=== PATIENT | female | born 2000 | race Caucasian/White ===

== ENCOUNTER 2022-08-03 17:23 | Emergency (ER) | payer OTHER ==
[~2022-08-03] VITALS: Ht 167.6 cm; Wt 71.1 kg
[2022-08-03] MEDS ORDERED: OMEPRAZOLE20 MG PO (18:25)
[2022-08-03] MEDS ORDERED: LITHIUM CARBON600 MG PO (18:25)
[2022-08-03] MEDS ORDERED: ONDANSETRON HCL4 MG PO (22:08)
== END 2022-08-03 22:15 | disposition home or self-care (01) ==
LOC: ED 17:23
DX: B34.9 Viral infection, unspecified (principal); Z20.822 Contact with and (suspected) exposure to COVID-19; Z79.899 Other long term (current) drug therapy
CPT/HCPCS: 36415; 71045; 80053; 81003; 83690; 83735; 84703; 85025; 87502; 96361; 96374; 96375; 99284-25; A9270; J2405; J7121; U0003

== ENCOUNTER → 2023-09-18 | Emergency (ER) | payer OTHER ==
[~2023-09-18] VITALS: Ht 160 cm; Wt 54.6 kg
[~2023-09-18] MED LIST: ALLERGY RELIEF10 MG PO; ATIVAN1 MG PO; BENZTROPINE ME0.5 MG PO; BENZTROPINE MESYLATE 1 MG TAB PO PRN; HYDROXYZINE HCL10 MG PO; L-THEANINE100 MG PO; LITHIUM CARBON600 MG PO; LORazepam 1 MG TAB PO PRN; OMEPRAZOLE20 MG PO; ONDANSETRON HCL4 MG PO; QUETIAPINE FUM100 MG PO; QUETIAPINE FUMARATE 100 MG TAB PO SCH; hydrOXYzine pamoate 25 MG CAP PO PRN
[2023-09-18 14:29] LABS: BILIRUBIN, URINE NEGATIVE (negative); BLOOD/HGB, URINE NEGATIVE (Negative); KETONE, URINE NEGATIVE (Negative); LEUK ESTERASE, URINE NEGATIVE (negative); NITRITE, URINE NEGATIVE (negative)
[2023-09-18 14:31] LABS: BASOPHILS 0.7 % (0-2); EOSINOPHILS 0.4 % (0-6); HEMATOCRIT 39.3 % (35.0-50.0); LYMPHOCYTES 32.7 % (24-44); MCH 30.5 (27-36); MCHC 33.1 g/dl (30-36); MCV 92.3 fl (81-99); MONOCYTES 6.3 % (0-12); NEUTROPHILS 59.9 % (39-80); PLATELET COUNT 283 K/uL (140-440); RBC 4.26 M/ul (4.3-5.7); RDW 13.2 (10.5-15.0)
[2023-09-18 14:45] LABS: AMPHETAMINES, URINE NEGATIVE (NEGATIVE); BARBITURATES, URINE NEGATIVE (NEGATIVE); BENZODIAZEPINE, URINE NEGATIVE (NEGATIVE); BUPRENORPHINE, URINE NEGATIVE (NEGATIVE); CANNABINOID, URINE NEGATIVE (NEGATIVE); COCAINE, URINE NEGATIVE (NEGATIVE); ECSTASY, URINE NEGATIVE (NEGATIVE); FENTANYL, URINE NEGATIVE (NEGATIVE); METHADONE, URINE NEGATIVE (NEGATIVE); OPIATES, URINE NEGATIVE (NEGATIVE); OXYCODONE, URINE NEGATIVE (NEGATIVE); PHENCYCLIDINE, URINE NEGATIVE (NEGATIVE)
[2023-09-18 14:47] LABS: ACETAMINOPHEN 0 ug/mL (10-30); ALBUMIN 3.7 g/dL (3.4-5.0); ALBUMIN/GLOBULIN RATIO 0.95 (1.1-2.4); ALCOHOL, MEDICAL <3 ng/dL (<3); ALKALINE PHOSPHATASE 50 U/L (46-116); ALT (SGPT) 39 U/L (14-59); ANION GAP 15.6 (7-21); AST (SGOT) 29 U/L (15-37); BILIRUBIN, TOTAL 0.4 ng/dL (0.2-1.0); CALCIUM 9.5 mg/dL (8.5-10.1); CARBON DIOXIDE 23 mmol/L (21-32); CHLORIDE 105 mmol/L (98-107); GLOMERULAR FILTRATION RATE,EST 107 mL/min (>60); POTASSIUM 3.6 mmol/L (3.5-5.1); PROTEIN, TOTAL 7.6 g/dL (6.4-8.2); SALICYLATE 0.9 mg/dL (2.8-20.0); TSH, 3RD GENERATION 0.469 uIU/mL (0.358-3.740); UREA NITROGEN 16 mg/dL (7-18)
[2023-09-18 17:25] LABS: INFLUENZA B NAA NEGATIVE (NEGATIVE); RESPIRATORY SYNCYTIAL VIR NAA NEGATIVE (NEGATIVE)
[2023-09-19 19:35] VITALS: BP 140/83
== END ==
LOC: ED 13:51
PROVIDERS: Emergency Medicine
DX: F25.9 Schizoaffective disorder, unspecified (principal); Z79.899 Other long term (current) drug therapy; Z88.8 Allergy status to other drugs, medicaments and biological substances
CPT/HCPCS: 36415; 80053; 80307; 81003; 84443; 84703; 85025; 87502; G0480; U0002

== ENCOUNTER 2024-01-14 14:42 | Emergency (ER) | payer OTHER ==
[~2024-01-14] VITALS: Ht 160 cm; Wt 55.4 kg
[~2024-01-14 14:42] MED LIST changes: -BENZTROPINE MESYLATE 1 MG TAB PO PRN; -LORazepam 1 MG TAB PO PRN; -QUETIAPINE FUMARATE 100 MG TAB PO SCH; -hydrOXYzine pamoate 25 MG CAP PO PRN
--- OUTSIDE RECORDS SUMMARY | 2024-01-14 14:49 | XMS ---
PreManage Notification: STELLA HOYT Security Data Officer Events No recent Security Events currently on file CRITERIA MET - [facility] - Has Care Guidelines CARE PROVIDERS -, [facility] Dentist: Refrigeration Engineer [facility] PHONE: [phone] -Sanna- Dentist: Refrigeration Engineer [facility] PHONE: [phone] Shannon has no Care Guidelines for this patient. Paulino VISIT COUNT (12 MO.) [address] [place] [address] TOTAL 3 NOTE: Visits indicate total known visits. ED/UCC VISIT TRACKING (12 MO.) 01/14/2024 14:43 [facility] [place] TYPE: Emergency COMPLAINT: - POSSIBLE MENTAL HEALTH 09/18/2023 13:52 [facility] [place] TYPE: Emergency COMPLAINT: - MEDICAL CLEARANCE DIAGNOSES: - Allergy status to other drugs, medicaments and biological substances - Delusional disorders - Other superintendent marine oil terminal (current) drug therapy - Schizoaffective disorder, unspecified 08/08/2023 17:13 [facility] [place] TYPE: Emergency COMPLAINT: - MEDICAL CLEARANCE DIAGNOSES: - Allergy status to other drugs, medicaments and biological substances - Encounter for screening for COVID-19 - Major depressive disorder, single episode, unspecified - Other superintendent marine oil terminal (current) drug therapy - Other symptoms and signs involving appearance and behavior - Suicidal ideations - Unspecified psychosis not due to a substance or known physiological condition INPATIENT VISIT TRACKING (12 MO.) 09/26/2023 11:52 [facility] CHENTE Cruz TYPE: Behavioral Health DIAGNOSES: - Schizoaffective disorder, bipolar type - Schizoaffective disorder, unspecified - Unspecified psychosis not due to a substance or known physiological condition 08/13/2023 10:04 [facility] [place] TYPE: Psychiatric Services DIAGNOSES: 0. Major depressive disorder, recurrent severe without psychotic features 0. Schizoaffective disorder, bipolar type 1. Schizoaffective disorder, bipolar type 2. Hypokalemia 2. Nonsuicidal self-harm 2. Patient's intentional underdosing of medication regimen for other reason 2. Personal history of suicidal behavior 2. Scoliosis, unspecified 2. Suicidal ideations [email or web address]
[2024-01-14 16:50] LABS: BASOPHILS 0.9 % (0-2); EOSINOPHILS 0.8 % (0-6); HEMATOCRIT 38.7 % (35.0-50.0); HEMOGLOBIN 13.1 g/dL (12.0-18.0); LYMPHOCYTES 37.9 % (24-44); MCH 30.7 (27-36); MCHC 33.8 g/dl (30-36); MCV 90.7 fl (81-99); MONOCYTES 5.4 % (0-12); PLATELET COUNT 242 K/uL (140-440); RBC 4.27 M/ul (4.3-5.7)
[2024-01-14 17:18] LABS: ACETAMINOPHEN 0 ug/mL (10-30); ALBUMIN 3.8 g/dL (3.4-5.0); ALBUMIN/GLOBULIN RATIO 1.09 (1.1-2.4); ALCOHOL, MEDICAL <3 ng/dL (<3); ALKALINE PHOSPHATASE 45 U/L (46-116); ALT (SGPT) 26 U/L (14-59); ANION GAP 14.7 (7-21); AST (SGOT) 6 U/L (15-37); BILIRUBIN, TOTAL 0.4 ng/dL (0.2-1.0); BUN/CREATININE RATIO 18.51 (6.0-28.6); CALCIUM 8.5 mg/dL (8.5-10.1); CARBON DIOXIDE 25 mmol/L (21-32); CHLORIDE 102 mmol/L (98-107); CREATININE, SERUM 0.81 mg/dL (0.55-1.02); GLOMERULAR FILTRATION RATE,EST 105 mL/min (>60); POTASSIUM 3.7 mmol/L (3.5-5.1); PROTEIN, TOTAL 7.3 g/dL (6.4-8.2); SALICYLATE 0.7 mg/dL (2.8-20.0); TSH, 3RD GENERATION 0.192 uIU/mL (0.358-3.740); UREA NITROGEN 15 mg/dL (7-18)
[2024-01-14 17:30] LABS: BILIRUBIN, URINE NEGATIVE (negative); BLOOD/HGB, URINE TRACE-I (Negative); KETONE, URINE NEGATIVE (Negative); LEUK ESTERASE, URINE NEGATIVE (negative); NITRITE, URINE NEGATIVE (negative)
[2024-01-14 17:41] LABS: BACTERIA, URINE 1+ /hpf (negative); CASTS, URINE NONE SEEN \\lpf; CRYSTALS, URINE NONE SEEN (0-1+); EPITHELIAL CELLS, URINE SQUAMOUS 3+ /lpf (0-1+); RED BLOOD CELLS, URINE 0-1 /hpf (0-5)
[2024-01-14 17:42] LABS: COLLECTION TYPE, URINE CLEAN CATCH; REFLEX CULTURE, URINE No (No)
[2024-01-14 17:44] LABS: AMPHETAMINES, URINE NEGATIVE (NEGATIVE); BARBITURATES, URINE NEGATIVE (NEGATIVE); BENZODIAZEPINE, URINE NEGATIVE (NEGATIVE); BUPRENORPHINE, URINE NEGATIVE (NEGATIVE); CANNABINOID, URINE NEGATIVE (NEGATIVE); COCAINE, URINE NEGATIVE (NEGATIVE); ECSTASY, URINE NEGATIVE (NEGATIVE); FENTANYL, URINE NEGATIVE (NEGATIVE); METHADONE, URINE NEGATIVE (NEGATIVE); OPIATES, URINE NEGATIVE (NEGATIVE); OXYCODONE, URINE NEGATIVE (NEGATIVE); PHENCYCLIDINE, URINE NEGATIVE (NEGATIVE)
[2024-01-14] MEDS ORDERED: QUETIAPINE FUMARATE 25 MG TAB PO ONE (22:30)
[2024-01-15 12:27] VITALS: BP 116/65
--- NOTE | 2024-01-16 22:33 | EKG ---
[facility] [address] [facility] [address] [place] [address] Signed Sinus bradycardia Early repolarization Otherwise normal ECG No previous ECGs available Confirmed by Trisha Scaheffer MD () on 01/16/2024 10:33:05 PM Electronically Signed By: TRISHA SCHAEFFER MD 01/16/242232 PATIENT NAME: STELLA HOYT Electrocardiogram DATE OF : [birth year] PHYSICIAN: TRISHA SCHAEFFER MD REPORT #: [id number] REPORT IS CONFIDENTIAL AND NOT TO BE RELEASED WITHOUT AUTHORIZATION
== END 2024-01-15 12:29 | disposition short-term general hospital (02) ==
LOC: ED 14:42
PROVIDERS: Emergency Medicine
DX: F32.A Depression, unspecified (principal); Z88.8 Allergy status to other drugs, medicaments and biological substances; Z79.899 Other long term (current) drug therapy
CPT/HCPCS: 36415; 80053; 80307; 81001; 84443; 84703; 85025; 93005; 93010; 99285; G0480; U0002

== ENCOUNTER 2024-05-08 18:48 | Emergency (ER) | payer OTHER ==
[~2024-05-08] VITALS: Ht 160 cm; Wt 65.0 kg
--- OUTSIDE RECORDS SUMMARY | 2024-05-08 19:26 | XMS ---
PreManage Notification: STELLA HOYT Security Ore Mixer Events No recent Security Events currently on file CRITERIA MET - [facility] - Has Care Guidelines CARE PROVIDERS -, [facility] Dentist: Mill Controller [facility] PHONE: [phone] -Sanna- Dentist: Mill Controller [facility] PHONE: [phone] Shannon has no Care Guidelines for this patient. Paulino VISIT COUNT (12 MO.) [address] [place] [address] TOTAL 4 NOTE: Visits indicate total known visits. ED/UCC VISIT TRACKING (12 MO.) 05/08/2024 18:[address] [facility] [address] [facility] [place] TYPE: Emergency COMPLAINT: - INSOMNIA 01/14/2024 14:[address] [facility] [address] [facility] [place] TYPE: Emergency COMPLAINT: - POSSIBLE MENTAL HEALTH DIAGNOSES: - Allergy status to other drugs, medicaments and biological substances - Depression, unspecified - Other terminal operator (current) drug therapy - Suicidal ideations 09/18/2023 13:52 [facility] [place] TYPE: Emergency COMPLAINT: - MEDICAL CLEARANCE DIAGNOSES: - Allergy status to other drugs, medicaments and biological substances - Delusional disorders - Other care home (current) drug therapy - Schizoaffective disorder, unspecified 08/08/2023 17:13 [facility] Bruni [facility] [place] TYPE: Emergency COMPLAINT: - MEDICAL CLEARANCE DIAGNOSES: - Allergy status to other drugs, medicaments and biological substances - Encounter for screening for COVID-19 - Major depressive disorder, single episode, unspecified - Other care home (current) drug therapy - Other symptoms and signs involving appearance and behavior - Suicidal ideations - Unspecified psychosis not due to a substance or known physiological condition INPATIENT VISIT TRACKING (12 MO.) 01/15/2024 16:[address] [facility] TYPE: Behavioral Health DIAGNOSES: - Depression, unspecified 09/26/2023 11:52 [facility] TYPE: Behavioral Health DIAGNOSES: - Schizoaffective disorder, bipolar type - Schizoaffective disorder, unspecified - Unspecified psychosis not due to a substance or known physiological condition 08/13/2023 10:04 [facility] [place] TYPE: Psychiatric Services DIAGNOSES: 0. Major depressive disorder, recurrent severe without psychotic features 0. Schizoaffective disorder, bipolar type 1. Schizoaffective disorder, bipolar type 2. Hypokalemia 2. Nonsuicidal self-harm 2. Patient's intentional underdosing of medication regimen for other reason 2. Personal history of suicidal behavior 2. Scoliosis, unspecified 2. Suicidal ideations [email or web address]
[2024-05-08] MEDS ORDERED: AMBIEN5 MG PO (20:06)
[2024-05-08 20:20] VITALS: BP 122/69
== END 2024-05-08 20:21 | disposition home or self-care (01) ==
LOC: ED 18:48
DX: G47.00 Insomnia, unspecified (principal); M41.9 Scoliosis, unspecified; Z88.8 Allergy status to other drugs, medicaments and biological substances
CPT/HCPCS: 99283

== ENCOUNTER 2024-05-10 10:49 | Emergency (ER) | payer OTHER ==
[~2024-05-10] VITALS: Ht 160 cm; Wt 60.8 kg
[~2024-05-10 10:49] MED LIST changes: +AMBIEN5 MG PO
--- OUTSIDE RECORDS SUMMARY | 2024-05-10 10:51 | XMS ---
PreManage Notification: STELLA HOYT Security Pigs Feet Finisher Events No recent Security Events currently on file CRITERIA MET - [facility] - 2 Visits in 30 Days - [facility] - Has Care Guidelines CARE PROVIDERS -, [facility] Dentist: Middle School Tutor [facility] PHONE: [phone] -[place]anna- Dentist: Middle School Tutor [facility] PHONE: [phone] Shannon has no Care Guidelines for this patient. EPb. VISIT COUNT (12 MO.) 5 [facility] TOTAL 5 NOTE: Visits indicate total known visits. ED/UCC VISIT TRACKING (12 MO.) 05/10/2024 10:[address] [facility] [address] [facility] [place] TYPE: Emergency COMPLAINT: - MEDICAL CLEARANCE 05/08/2024 18:[address] [facility] [address] [facility] [place] TYPE: Emergency COMPLAINT: - INSOMNIA 01/14/2024 14:43 [facility] Tate [place] TYPE: Emergency COMPLAINT: - POSSIBLE MENTAL HEALTH DIAGNOSES: - Allergy status to other drugs, medicaments and biological substances - Depression, unspecified - Other shelter (current) drug therapy - Suicidal ideations 09/18/2023 13:52 [facility] [place] TYPE: Emergency COMPLAINT: - MEDICAL CLEARANCE DIAGNOSES: - Allergy status to other drugs, medicaments and biological substances - Delusional disorders - Other shelter (current) drug therapy - Schizoaffective disorder, unspecified 08/08/2023 17:13 [facility] [place] TYPE: Emergency COMPLAINT: - MEDICAL CLEARANCE DIAGNOSES: - Allergy status to other drugs, medicaments and biological substances - Encounter for screening for COVID-19 - Major depressive disorder, single episode, unspecified - Other shelter (current) drug therapy - Other symptoms and signs involving appearance and behavior - Suicidal ideations - Unspecified psychosis not due to a substance or known physiological condition INPATIENT VISIT TRACKING (12 MO.) 01/15/2024 16:03 [facility]ENTE Cruz TYPE: Behavioral Health DIAGNOSES: - Depression, unspecified 09/26/2023 11:52 [facility] [place] TYPE: Behavioral Health DIAGNOSES: - Schizoaffective disorder, bipolar type - Schizoaffective disorder, unspecified - Unspecified psychosis not due to a substance or known physiological condition 08/13/2023 10:04 [facility] TYPE: Psychiatric Services DIAGNOSES: 0. Major depressive disorder, recurrent severe without psychotic features 0. Schizoaffective disorder, bipolar type 1. Schizoaffective disorder, bipolar type 2. Hypokalemia 2. Nonsuicidal self-harm 2. Patient's intentional underdosing of medication regimen for other reason 2. Personal history of suicidal behavior 2. Scoliosis, unspecified 2. Suicidal ideations [email or web address]
[2024-05-10 15:05] VITALS: BP 128/78
== END 2024-05-10 15:08 | disposition home or self-care (01) ==
LOC: ED 10:49
DX: G47.8 Other sleep disorders (principal); F43.10 Post-traumatic stress disorder, unspecified; M41.9 Scoliosis, unspecified; Z88.8 Allergy status to other drugs, medicaments and biological substances
CPT/HCPCS: 99283

== ENCOUNTER 2024-06-14 16:27 | Emergency (ER) | payer OTHER ==
[~2024-06-14] VITALS: Ht 160 cm; Wt 59.7 kg
--- OUTSIDE RECORDS SUMMARY | 2024-06-14 16:33 | XMS ---
PreManage Notification: STELLA HOYT Security Digital Media Strategist Events No recent Security Events currently on file CRITERIA MET - [facility] - Has Care Guidelines CARE PROVIDERS -, [facility] Dentist: Security Systems Manager [facility] PHONE: [phone] -Sanna- Dentist: Security Systems Manager On License Of [facility] PHONE: [phone] Shannon has no Care Guidelines for this patient. Paulino VISIT COUNT (12 MO.) [address] [place] [address] TOTAL 6 NOTE: Visits indicate total known visits. ED/UCC VISIT TRACKING (12 MO.) 06/14/2024 16:[address] [facility] [address] [facility] [place] TYPE: Emergency COMPLAINT: - SLEEP PROBLEM 05/10/2024 10:[address] [facility] [address] [facility] [place] TYPE: Emergency COMPLAINT: - MEDICAL CLEARANCE DIAGNOSES: - Allergy status to other drugs, medicaments and biological substances - Insomnia, unspecified - Other sleep disorders - Post-traumatic stress disorder, unspecified - Scoliosis, unspecified 05/08/2024 18:[address] [facility] [address] [facility] [place] TYPE: Emergency COMPLAINT: - INSOMNIA DIAGNOSES: - Allergy status to other drugs, medicaments and biological substances - Insomnia, unspecified - Scoliosis, unspecified 01/14/2024 14:43 [facility] [place] TYPE: Emergency COMPLAINT: - POSSIBLE MENTAL HEALTH DIAGNOSES: - Allergy status to other drugs, medicaments and biological substances - Depression, unspecified - Other skilled nursing (current) drug therapy - Suicidal ideations 09/18/2023 13:52 [facility] [place] [facility]: [facility] COMPLAINT: - MEDICAL CLEARANCE DIAGNOSES: - Allergy status to other drugs, medicaments and biological substances - Delusional disorders - Other termite control servicer (current) drug therapy - Schizoaffective disorder, unspecified 08/08/2023 17:[address] [facility] [address] [facility] [place] TYPE: Emergency COMPLAINT: - MEDICAL CLEARANCE DIAGNOSES: - Allergy status to other drugs, medicaments and biological substances - Encounter for screening for COVID-19 - Major depressive disorder, single episode, unspecified - Other termite control servicer (current) drug therapy - Other symptoms and signs involving appearance and behavior - Suicidal ideations - Unspecified psychosis not due to a substance or known physiological condition INPATIENT VISIT TRACKING (12 MO.) 01/15/2024 16:03 [facility] [place] TYPE: Behavioral Health DIAGNOSES: - Depression, unspecified 09/26/2023 11:52 [facility] [place] TYPE: Behavioral Health DIAGNOSES: - Schizoaffective disorder, bipolar type - Schizoaffective disorder, unspecified - Unspecified psychosis not due to a substance or known physiological condition 08/13/2023 10:04 [facility] [place] TYPE: Psychiatric Services DIAGNOSES: 0. Major depressive disorder, recurrent severe without psychotic features 0. Schizoaffective disorder, bipolar type 1. Schizoaffective disorder, bipolar type 2. Hypokalemia 2. Nonsuicidal self-harm 2. Patient's intentional underdosing of medication regimen for other reason 2. Personal history of suicidal behavior 2. Scoliosis, unspecified 2. Suicidal ideations [email or web address]
[2024-06-14 18:21] LABS: BILIRUBIN, URINE NEGATIVE (negative); BLOOD/HGB, URINE NEGATIVE (Negative); KETONE, URINE TRACE (Negative); LEUK ESTERASE, URINE NEGATIVE (negative); NITRITE, URINE NEGATIVE (negative)
[2024-06-14 18:31] LABS: AMPHETAMINES, URINE NEGATIVE (NEGATIVE); BARBITURATES, URINE NEGATIVE (NEGATIVE); BENZODIAZEPINE, URINE NEGATIVE (NEGATIVE); BUPRENORPHINE, URINE NEGATIVE (NEGATIVE); CANNABINOID, URINE NEGATIVE (NEGATIVE); COCAINE, URINE NEGATIVE (NEGATIVE); ECSTASY, URINE NEGATIVE (NEGATIVE); FENTANYL, URINE NEGATIVE (NEGATIVE); METHADONE, URINE NEGATIVE (NEGATIVE); OPIATES, URINE NEGATIVE (NEGATIVE); OXYCODONE, URINE NEGATIVE (NEGATIVE); PHENCYCLIDINE, URINE NEGATIVE (NEGATIVE)
[2024-06-14 18:56] LABS: BASOPHILS 0.7 % (0-2); EOSINOPHILS 0.4 % (0-6); HEMATOCRIT 44.3 % (35.0-50.0); HEMOGLOBIN 14.8 g/dL (12.0-18.0); LYMPHOCYTES 40.7 % (24-44); MCH 30.9 (27-36); MCHC 33.3 g/dl (30-36); MCV 92.7 fl (81-99); NEUTROPHILS 54.2 % (39-80); RBC 4.78 M/ul (4.3-5.7); RDW 13.2 (10.5-15.0)
[2024-06-14 18:57] LABS: ACETAMINOPHEN 0 ug/mL (10-30); ALBUMIN 4.1 g/dL (3.4-5.0); ALBUMIN/GLOBULIN RATIO 1.08 (1.1-2.4); ALCOHOL, MEDICAL <3 ng/dL (<3); ALKALINE PHOSPHATASE 47 U/L (46-116); ALT (SGPT) 17 U/L (14-59); ANION GAP 16.9 (7-21); AST (SGOT) 17 U/L (15-37); BILIRUBIN, TOTAL 0.6 ng/dL (0.2-1.0); BUN/CREATININE RATIO 19.04 (6.0-28.6); CALCIUM 9.4 mg/dL (8.5-10.1); CARBON DIOXIDE 23 mmol/L (21-32); CHLORIDE 102 mmol/L (98-107); CREATININE, SERUM 0.84 mg/dL (0.55-1.02); GLOMERULAR FILTRATION RATE,EST 101 mL/min (>60); POTASSIUM 3.9 mmol/L (3.5-5.1); PROTEIN, TOTAL 7.9 g/dL (6.4-8.2); SALICYLATE 0.8 mg/dL (2.8-20.0); TSH, 3RD GENERATION 0.487 uIU/mL (0.358-3.740); UREA NITROGEN 16 mg/dL (7-18)
[2024-06-14] MEDS ORDERED: SEROQUEL50 MG PO (20:54)
[2024-06-14] MEDS ORDERED: QUETIAPINE FUMARATE 25 MG TAB PO ONE (21:00)
[2024-06-14 21:06] VITALS: BP 108/67
== END 2024-06-14 21:08 | disposition home or self-care (01) ==
LOC: ED 16:27
PROVIDERS: Emergency Medicine
DX: G47.00 Insomnia, unspecified (principal); R45.851 Suicidal ideations; M41.9 Scoliosis, unspecified; Z88.8 Allergy status to other drugs, medicaments and biological substances; Z79.899 Other long term (current) drug therapy
CPT/HCPCS: 36415; 80053; 80307; 81003; 84443; 84703; 85025; 85060; 99284; A9270; G0480

== ENCOUNTER 2024-07-04 00:53 | Emergency (ER) | payer OTHER ==
[~2024-07-04] VITALS: Ht 160 cm; Wt 70.0 kg
[~2024-07-04 00:53] MED LIST changes: +SEROQUEL50 MG PO
--- OUTSIDE RECORDS SUMMARY | 2024-07-04 00:55 | XMS ---
PreManage Notification: STELLA HOYT Security Fire Lookout Events No recent Security Events currently on file CRITERIA MET - [facility] - 2 Visits in 30 Days - [facility] - Has Care Guidelines CARE PROVIDERS [facility] Current PHONE: Unknown Shannon has no Care Guidelines for this patient. ELars VISIT COUNT (12 MO.) 7 [facility] TOTAL 7 NOTE: Visits indicate total known visits. ED/UCC VISIT TRACKING (12 MO.) 07/04/2024 00:53 [facility] [place] TYPE: Emergency COMPLAINT: - SUICIDAL/DEPRESSION 06/14/2024 16:27 [facility] [place] TYPE: Emergency COMPLAINT: - SLEEP PROBLEM DIAGNOSES: - Allergy status to other drugs, medicaments and biological substances - Insomnia, unspecified - Other bed bug exterminator (current) drug therapy - Scoliosis, unspecified - Suicidal ideations 05/10/2024 10:50 [facility] [place] TYPE: Emergency COMPLAINT: - MEDICAL CLEARANCE DIAGNOSES: - Allergy status to other drugs, medicaments and biological substances - Insomnia, unspecified - Other sleep disorders - Post-traumatic stress disorder, unspecified - Scoliosis, unspecified 05/08/2024 18:[address] [facility] [place] TYPE: Emergency COMPLAINT: - INSOMNIA DIAGNOSES: - Allergy status to other drugs, medicaments and biological substances - Insomnia, unspecified - Scoliosis, unspecified 01/14/2024 14:[address] [facility] [place] TYPE: Emergency COMPLAINT: - POSSIBLE MENTAL HEALTH DIAGNOSES: - Allergy status to other drugs, medicaments and biological substances - Depression, unspecified - Other fci (current) drug therapy - Suicidal ideations 09/18/2023 13:52 [facility] [place] [facility] [place] TYPE: Emergency COMPLAINT: - MEDICAL CLEARANCE DIAGNOSES: - Allergy status to other drugs, medicaments and biological substances - Delusional disorders - Other bed bug exterminator (current) drug therapy - Schizoaffective disorder, unspecified 08/08/2023 17:[address] [facility] [place] [place] TYPE: Emergency COMPLAINT: - MEDICAL CLEARANCE DIAGNOSES: - Allergy status to other drugs, medicaments and biological substances - Encounter for screening for COVID-19 - Major depressive disorder, single episode, unspecified - Other fci (current) drug therapy - Other symptoms and signs involving appearance and behavior - Suicidal ideations - Unspecified psychosis not due to a substance or known physiological condition INPATIENT VISIT TRACKING (12 MO.) 01/15/2024 16:03 [facility] [place] M.C[facility] TYPE: Behavioral Health DIAGNOSES: - Depression, unspecified 09/26/2023 11:52 [facility] [place] M.C[facility]ne TYPE: Behavioral Health DIAGNOSES: - Schizoaffective disorder, bipolar type - Schizoaffective disorder, unspecified - Unspecified psychosis not due to a substance or known physiological condition 08/13/2023 10:04 [facility] [place] TYPE: Psychiatric Services DIAGNOSES: 0. Major depressive disorder, recurrent severe without psychotic features 0. Schizoaffective disorder, bipolar type 1. Schizoaffective disorder, bipolar type 2. Hypokalemia 2. Nonsuicidal self-harm 2. Patient's intentional underdosing of medication regimen for other reason 2. Personal history of suicidal behavior 2. Scoliosis, unspecified 2. Suicidal ideations [email or web address]
[2024-07-04 01:24] LABS: BILIRUBIN, URINE NEGATIVE (negative); BLOOD/HGB, URINE NEGATIVE (Negative); KETONE, URINE SMALL (Negative); LEUK ESTERASE, URINE NEGATIVE (negative); NITRITE, URINE NEGATIVE (negative); PH, URINE 5.5 (5-7)
[2024-07-04 01:35] LABS: BASOPHILS 0.4 % (0-2); EOSINOPHILS 0.3 % (0-6); HEMATOCRIT 39.5 % (35.0-50.0); HEMOGLOBIN 13.4 g/dL (12.0-18.0); LYMPHOCYTES 21.2 % (24-44); MCH 30.6 (27-36); MCHC 33.8 g/dl (30-36); MCV 90.5 fl (81-99); NEUTROPHILS 72.1 % (39-80); PLATELET COUNT 255 K/uL (140-440); RBC 4.37 M/ul (4.3-5.7); RDW 13.1 (10.5-15.0)
[2024-07-04 01:38] LABS: AMPHETAMINES, URINE NEGATIVE (NEGATIVE); BARBITURATES, URINE NEGATIVE (NEGATIVE); BENZODIAZEPINE, URINE NEGATIVE (NEGATIVE); BUPRENORPHINE, URINE NEGATIVE (NEGATIVE); CANNABINOID, URINE NEGATIVE (NEGATIVE); COCAINE, URINE NEGATIVE (NEGATIVE); ECSTASY, URINE NEGATIVE (NEGATIVE); FENTANYL, URINE NEGATIVE (NEGATIVE); METHADONE, URINE NEGATIVE (NEGATIVE); OPIATES, URINE NEGATIVE (NEGATIVE); OXYCODONE, URINE NEGATIVE (NEGATIVE); PHENCYCLIDINE, URINE NEGATIVE (NEGATIVE)
[2024-07-04 02:04] LABS: ACETAMINOPHEN 0 ug/mL (10-30); ALBUMIN/GLOBULIN RATIO 0.98 (1.1-2.4); ALCOHOL, MEDICAL <3 ng/dL (<3); ALKALINE PHOSPHATASE 58 U/L (46-116); ALT (SGPT) 19 U/L (14-59); ANION GAP 12.3 (7-21); AST (SGOT) 13 U/L (15-37); BILIRUBIN, TOTAL 0.6 ng/dL (0.2-1.0); BUN/CREATININE RATIO 21.21 (6.0-28.6); CALCIUM 9.3 mg/dL (8.5-10.1); CARBON DIOXIDE 29 mmol/L (21-32); CHLORIDE 101 mmol/L (98-107); CREATININE, SERUM 0.99 mg/dL (0.55-1.02); GLOMERULAR FILTRATION RATE,EST 83 mL/min (>60); POTASSIUM 3.3 mmol/L (3.5-5.1); PROTEIN, TOTAL 8.1 g/dL (6.4-8.2); SALICYLATE 1.3 mg/dL (2.8-20.0); TSH, 3RD GENERATION 0.831 uIU/mL (0.358-3.740); UREA NITROGEN 21 mg/dL (7-18)
[2024-07-04 03:23] VITALS: BP 137/81
== END 2024-07-04 03:30 | disposition home or self-care (01) ==
LOC: ED 00:53
PROVIDERS: Family Medicine
DX: F32.A Depression, unspecified (principal); G47.00 Insomnia, unspecified; Z59.00 Homelessness unspecified; Z88.8 Allergy status to other drugs, medicaments and biological substances
CPT/HCPCS: 36415; 80053; 80307; 81003; 84443; 84703; 85025; 99284; G0480

== ENCOUNTER 2024-07-05 19:26 | Inpatient (IN) | payer OTHER ==
[~2024-07-05] VITALS: Ht 160 cm; Wt 62.5 kg
[2024-07-05] MEDS ORDERED: LORazepam 2 MG/ML VIAL ONE (19:33)
--- OUTSIDE RECORDS SUMMARY | 2024-07-05 19:33 | XMS ---
PreManage Notification: STELLA HOYT Security Shared Services And Outsourcing Manager Events No recent Security Events currently on file CRITERIA MET - 6 ED Visits in 6 Months - [facility] - 2 Visits in 30 Days - [facility] - Has Care Guidelines CARE PROVIDERS [facility] Current PHONE: Unknown Shannon has no Care Guidelines for this patient. Paulino VISIT COUNT (12 MO.) 8 [facility] TOTAL 8 NOTE: Visits indicate total known visits. ED/UCC VISIT TRACKING (12 MO.) 07/05/2024 19:26 [facility] [place] TYPE: Emergency COMPLAINT: - OD 07/04/2024 00:53 [facility] [place] TYPE: Emergency COMPLAINT: - SUICIDAL/DEPRESSION DIAGNOSES: - Allergy status to other drugs, medicaments and biological substances - Depression, unspecified - Homelessness unspecified - Insomnia, unspecified - Suicidal ideations 06/14/2024 16:27 [facility] [place] TYPE: Emergency COMPLAINT: - SLEEP PROBLEM DIAGNOSES: - Allergy status to other drugs, medicaments and biological substances - Insomnia, unspecified - Other terminal gauger (current) drug therapy - Scoliosis, unspecified - Suicidal ideations 05/10/2024 10:[address] [facility] [place] TYPE: Emergency COMPLAINT: - MEDICAL CLEARANCE DIAGNOSES: - Allergy status to other drugs, medicaments and biological substances - Insomnia, unspecified - Other sleep disorders - Post-traumatic stress disorder, unspecified - Scoliosis, unspecified 05/08/2024 18:49 [facility] [place] [facility] [place] TYPE: Emergency COMPLAINT: - INSOMNIA DIAGNOSES: - Allergy status to other drugs, medicaments and biological substances - Insomnia, unspecified - Scoliosis, unspecified 01/14/2024 14:[address] [facility] [address] [facility] [place] TYPE: Emergency COMPLAINT: - POSSIBLE MENTAL HEALTH DIAGNOSES: - Allergy status to other drugs, medicaments and biological substances - Depression, unspecified - Other snf (current) drug therapy - Suicidal ideations 09/18/2023 13:52 [facility] [place] [facility] [place] TYPE: Emergency COMPLAINT: - MEDICAL CLEARANCE DIAGNOSES: - Allergy status to other drugs, medicaments and biological substances - Delusional disorders - Other terminal gauger (current) drug therapy - Schizoaffective disorder, unspecified 08/08/2023 17:[address] [facility] [address] [facility] [place] TYPE: Emergency COMPLAINT: - MEDICAL CLEARANCE DIAGNOSES: - Allergy status to other drugs, medicaments and biological substances - Encounter for screening for COVID-19 - Major depressive disorder, single episode, unspecified - Other terminal gauger (current) drug therapy - Other symptoms and signs involving appearance and behavior - Suicidal ideations - Unspecified psychosis not due to a substance or known physiological condition INPATIENT VISIT TRACKING (12 MO.) 01/15/2024 16:03 [facility] TYPE: Behavioral Health DIAGNOSES: - Depression, unspecified 09/26/2023 11:[address] [facility] [address] [facility] TYPE: Behavioral Health DIAGNOSES: - Schizoaffective disorder, bipolar type - Schizoaffective disorder, unspecified - Unspecified psychosis not due to a substance or known physiological condition 08/13/2023 10:04 [facility] [place] TYPE: Psychiatric Services DIAGNOSES: 0. Major depressive disorder, recurrent severe without psychotic features 0. Schizoaffective disorder, bipolar type 1. Schizoaffective disorder, bipolar type 2. Hypokalemia 2. Nonsuicidal self-harm 2. Patient's intentional underdosing of medication regimen for other reason 2. Personal history of suicidal behavior 2. Scoliosis, unspecified 2. Suicidal ideations [email or web address]
[2024-07-05] MEDS ORDERED: propofoL 100 ML IV ONE (19:41)
[2024-07-05] MEDS ORDERED: SODIUM CHLORIDE 0.9% 1,000 ML IV PRN (19:45)
[2024-07-05] MEDS ORDERED: ROCURONIUM BROMIDE 50 MG/5 ML SYR IV ONE (19:45)
[2024-07-05] MEDS ORDERED: LORazepam 2 MG/ML VIAL IV ONE (19:45)
[2024-07-05] MEDS ORDERED: ETOMIDATE 40 MG/20 ML VIAL IV ONE (19:45)
[2024-07-05 19:47] LABS: BASOPHILS 0.7 % (0-2); EOSINOPHILS 0.1 % (0-6); HEMATOCRIT 40.1 % (35.0-50.0); HEMOGLOBIN 13.5 g/dL (12.0-18.0); LYMPHOCYTES 34.3 % (24-44); MCH 30.8 (27-36); MCHC 33.6 g/dl (30-36); MCV 91.7 fl (81-99); MONOCYTES 5.9 % (0-12); PLATELET COUNT 236 K/uL (140-440); RBC 4.37 M/ul (4.3-5.7); RDW 13.3 (10.5-15.0)
[2024-07-05 20:00] LABS: ALBUMIN 4.2 g/dL (3.4-5.0); ALBUMIN/GLOBULIN RATIO 1.11 (1.1-2.4); ANION GAP 21.2 (7-21); BILIRUBIN, TOTAL 0.8 ng/dL (0.2-1.0); BUN/CREATININE RATIO 16.03 (6.0-28.6); CALCIUM 9.6 mg/dL (8.5-10.1); CREATININE, SERUM 1.06 mg/dL (0.55-1.02); POTASSIUM 3.2 mmol/L (3.5-5.1)
[2024-07-05] MEDS ORDERED: propofoL 100 ML IV SCH (20:00)
[2024-07-05] MEDS ORDERED: propofoL 200 MG/20 ML VIAL IV ONE ×4 (20:00→21:45)
[2024-07-05 20:12] LABS: PH, VENOUS 7.395 (7.31-7.41)
[2024-07-05 20:15] LABS: ACETAMINOPHEN 0 ug/mL (10-30)
[2024-07-05 20:17] LABS: BILIRUBIN, URINE POSITIVE (negative); BLOOD/HGB, URINE NEGATIVE (Negative); KETONE, URINE TRACE (Negative); LEUK ESTERASE, URINE NEGATIVE (negative); NITRITE, URINE NEGATIVE (negative)
[2024-07-05 20:24] LABS: BACTERIA, URINE 1+ /hpf (negative); CASTS, URINE NONE SEEN \\lpf; COLLECTION TYPE, URINE CLEAN CATCH; CRYSTALS, URINE NONE SEEN (0-1+); EPITHELIAL CELLS, URINE SQUAMOUS 3+ /lpf (0-1+); RED BLOOD CELLS, URINE 0-1 /hpf (0-5); REFLEX CULTURE, URINE No (No)
[2024-07-05 20:38] LABS: AMPHETAMINES, URINE NEGATIVE (NEGATIVE); BARBITURATES, URINE NEGATIVE (NEGATIVE); BENZODIAZEPINE, URINE NEGATIVE (NEGATIVE); BUPRENORPHINE, URINE NEGATIVE (NEGATIVE); CANNABINOID, URINE NEGATIVE (NEGATIVE); COCAINE, URINE NEGATIVE (NEGATIVE); ECSTASY, URINE NEGATIVE (NEGATIVE); FENTANYL, URINE NEGATIVE (NEGATIVE); METHADONE, URINE NEGATIVE (NEGATIVE); OPIATES, URINE NEGATIVE (NEGATIVE); OXYCODONE, URINE NEGATIVE (NEGATIVE); PHENCYCLIDINE, URINE NEGATIVE (NEGATIVE)
[2024-07-05] MEDS ORDERED: METOPROLOL TARTRATE 5 MG/5 ML VIAL IV ONE (20:45)
[2024-07-05] MEDS ORDERED: MAGNESIUM SULFATE 2 GM/50 ML BAG IV ONE (21:15)
[2024-07-05] MEDS ORDERED: FENTANYL CITRATE-0.9 % NACL/PF 100 ML IV SCH (21:45)
[2024-07-05] MEDS ORDERED: NS + 20 mEq KCl 1,000 ML IV ONE (22:30)
[2024-07-06] VITALS (14 sets, daily range): BP systolic 101–124; BP diastolic 59–90
[2024-07-06] MEDS ORDERED: SODIUM CHLORIDE 0.9% 1,000 ML IV PRN (01:45)
[2024-07-06] MEDS ORDERED: propofoL 200 MG/20 ML VIAL IV ONE (01:45)
[2024-07-06] MEDS ORDERED: DEXTROSE 5% - LACTATED RINGERS 1,000 ML IV SCH (04:30)
[2024-07-06] MEDS ORDERED: FENTANYL CITRATE-0.9 % NACL/PF 100 ML IV SCH (04:45)
[2024-07-06] MEDS ORDERED: propofoL 100 ML IV SCH (04:45)
--- NOTE | 2024-07-06 04:45 | NUR ---
Patient arrives to CCU via stretcher. Report received from Juanito Agustin on ventilator support, titrated by RT. Current settings are as follows: VT 360, RR 16, FIO2 21%, PEEP 5 in VCAC mode. Patient sedated with propofol and fentanyl, see flowsheet. POC to titrate patient down from medications to achieve light sedation, ultimately to achieve successful extubation. Clarke catheter in place. OGT to LIWS. Bilateral IVs in AC flushes WNL.
[2024-07-06 05:27] LABS: PH, VENOUS 7.434 (7.31-7.41)
[2024-07-06 05:35] LABS: BASOPHILS 0.3 % (0-2); EOSINOPHILS 0.6 % (0-6); HEMATOCRIT 30.3 % (35.0-50.0); HEMOGLOBIN 10.4 g/dL (12.0-18.0); LYMPHOCYTES 31.9 % (24-44); MCH 31.2 (27-36); MCHC 34.5 g/dl (30-36); MCV 90.6 fl (81-99); NEUTROPHILS 60.2 % (39-80); PLATELET COUNT 206 K/uL (140-440); RBC 3.35 M/ul (4.3-5.7)
[2024-07-06 05:53] LABS: ALBUMIN 2.9 g/dL (3.4-5.0); ANION GAP 15.8 (7-21); BILIRUBIN, TOTAL 0.6 ng/dL (0.2-1.0); BUN/CREATININE RATIO 18.18 (6.0-28.6); CALCIUM 7.7 mg/dL (8.5-10.1); CREATININE, SERUM 0.55 mg/dL (0.55-1.02); MAGNESIUM 1.9 mg/dL (1.8-2.4); POTASSIUM 3.8 mmol/L (3.5-5.1); PROTEIN, TOTAL 5.8 g/dL (6.4-8.2)
--- NOTE | 2024-07-06 06:32 | NUR ---
Continuing to titrate patient sedation. Currently RASS -5, unarousable to physical and voice stimulation. See flowsheet. Patient has bilateral soft restraints to upper extremities, removed restrains from bilateral lower extremities.
--- NOTE | 2024-07-06 07:45 | NUR ---
REPORT RECEIVED FROM ELY DU. PT RASS -4. RESTRAINTS WNL. BACA DRAINED WNL. PT HAS FRIEND JI IN ROOM. VS STABLE.
[2024-07-06] MEDS ORDERED: IBLOOD GLUCOSE TEST STRIP 1 EA TEST VI SCH (08:00)
--- NOTE | 2024-07-06 09:01 | NUR ---
PATIENT INTUBATED, NO FAMILY OR FRIENDS AT BEDSIDE. UNABLE TO COMPLETE ASSESSMENT AT THIS TIME.
--- NOTE | 2024-07-06 09:09 | NUR ---
ASSESS WNL. SEDATION WEANING STARTED 845. VS STABLE. RT ALERTED.
--- NOTE | 2024-07-06 09:43 | NUR ---
PT FRIEND BACK IN ROOM. LOWERED BLINDS IN ROOM DUE TO FRIEND BEING ALLERGIC TO LIGHT. PT CONTINUES TO STARTLE BUT NOT WAKE. WILL RAISE EYEBROWS WITH VOICE AND TOUCH.
--- NOTE | 2024-07-06 10:02 | NUR ---
PT FRIEND JI ASKING TO SPEAK WITH CM. NOTIFIED CM. CM IN ROOM
--- NOTE | 2024-07-06 10:10 | NUR ---
PT NOT AVAILABLE FOR VISIT. PROVIDED PRAYER.
--- NOTE | 2024-07-06 10:33 | NUR ---
PT CONTINUES TO BE A -3 RASS. SEDATION REMAINS OFF. CM IN ROOM SPEAKING WITH JI.
--- NOTE | 2024-07-06 10:53 | NUR ---
LONG CONVERSATION WITH FRIEND, COLTEN. PATIENT HAS BEEN STAYING WITH HER OFF AND ON SINCE OCTOBER. SHE APPARENTLY WAS RECENTLY DISCHARGED FROM A PSYCHIATRIC FACILITY WITHIN THE LAST YEAR AND HAS BEEN HOMELESS IN BETWEEN STAYING WITH COLTEN. SHE HAS NO KNOWN FAMILY. SHE RECIEVED A NOTICE REGARDING HER INSURANCE NEEDING RENEWAL BY 07/09/24. STATES SHE HAS ATTEMPTED TO SCHEDULE AN APPOINTMENT FOR RENEWING INSURANCE AND DID NOT RECIEVE CALL AT SCHEDULED TIME. POTENTIALLY WAS CONTACTED AT THE WRONG NUMBER BECAUSE PATIENT HAS HAD MULTIPLE PHONE NUMBERS THE LAST FEW MONTHS. HAS BEEN NOTING PATIENT HAS HAD DECREASED ABILITY TO SLEEP. SHE'S BEEN NOTED TO BE YELLING OUT FREQUENTLY AT NIGHT AND CONTINUED LACK OF REST THAT COLTEN FEELS HAS CONTRIBUTED TO PATIENT OVERDOSING. PATIENT HAS BEEN IN CONTACT WITH [facility] BUT WILL NOT HAVE APPOINTMENT TO BE SEEN UNTIL THE END OF JULY OR AUGUST. CALLED AND SPOKE WITH ROSALIND POE REGARDING PATIENT INSURANCE. STATES SHE IS GOING TO REACH OUT TO [facility] TO VERIFY IF THERE IS SOMETHING THEY CAN DO REGARDING HER INSURANCE RENEWAL SO SHE DOES NOT LOSE COVERAGE.
--- NOTE | 2024-07-06 11:11 | NUR ---
PT STIMULATED AGAIN. MOVED AROUND AND AND RAISED ARMS. HR TACHED UP TO 124 AND RR UP TO 19 BRIEFLY, SETTLED DOWN ALMOST IMMEDIETLY.
--- NOTE | 2024-07-06 11:57 | NUR ---
PT CONTINUES OFF SEDATION. UO WNL. FRIEND IN ROOM. RESTRAINTS WNL. SHIFTED PT IN BED. VS STABLE.
--- NOTE | 2024-07-06 12:38 | NUR ---
PT BOOSTED AND WAKING UP MORE. STILL WILL NOT OPEN EYES WHEN SPOKEN TO. RT IN ROOM AND PT NOT QUITE READY FOR EXT YET.
[2024-07-06] MEDS ORDERED: LACTATED RINGER'S 1,000 ML IV SCH (12:45)
[2024-07-06] MEDS ORDERED: PANTOPRAZOLE SODIUM 40 MG/10 ML VIAL IV SCH (12:48)
--- NOTE | 2024-07-06 14:01 | NUR ---
UR CLINICAL REVIEW: [facility] IN[facility] FOR DRUG INGESTION/OD [facility] INPT 07/06/24 @ 1248 ORDER MATCHES REG CLINICAL FAXED TO [facility] FOR AUTH REVIEW DISCHARGE PENDING FURTHER MENTAL HEALTH EVAL 07/08/24
--- NOTE | 2024-07-06 15:51 | NUR ---
PT GIVEN BED BATH BY THIS RN AND ELY ARTIS. PT STIRRED AND SQUIRMED AROUND BUT DID NOT OPEN EYES OR RESPOND. BACA CARE DONE. SUCTIONED SALIVA. PT TOLERATED. CALLED DR HICKS TO UPDATE. HE WILL COME SEE PT AGAIN.
[2024-07-06] MEDS ORDERED: QUETIAPINE FUM100 MG PO (16:26)
[2024-07-06] MEDS ORDERED: QUETIAPINE FUMA50 MG PO (16:27)
--- NOTE | 2024-07-06 17:12 | NUR ---
PT CONTINUES TO BE OFF SEDATION WITH NO SPONTANEOUS EYE OPENING. UO WNL. VS WNL. FRIEND JI IN ROOM.
--- NOTE | 2024-07-06 17:30 | NUR ---
RT IN ROOM TO TRY WEANING PT OFF VENT. PT ABLE TO TOLERATE BREATHING ON HER OWN. STILL DOES NOT OPEN EYES FOR MORE THAN A SPLIT SECOND. WHEN STIMULATED SHE GOES RIGHT BACK TO SLEEP WHEN STIMULI IS WITHDRAWN. RESTRAINTS WNL. VS STABLE ALTHOUGH TEMP IS SLIGHTLY ELEVATED. DR GUNTER, WILL GIVE TYLENOL. FRIEND IN ROOM.
--- NOTE | 2024-07-06 18:17 | NUR ---
SPOKE WITH DR HICKS REGARDING CONTINUEING TO WEAN OFF VENT. DECIDED TO LET HER REST WITH THE VENT AND TRY AGAIN TOMORROW MORNING FIRST THING WOULD BE SAFEST. RT TURNED VENT SETTINGS BACK ON. EMPTIED BACA. OG HAS STARTED PUTTING OUT COPIOUS AMTS GREEN FLUID, 300ML.
--- NOTE | 2024-07-06 18:31 | NUR ---
PERFORMED ORAL CARE WITH MOUTH SWABS AND SUCTION AGAIN. APPLIED CHAPSTICK TO LIPS. PT STIRRED AND LOOKED AT THIS RN BUT QUICKLY WENT BACK TO SLEEP.
[2024-07-06] MEDS ORDERED: ACETAMINOPHEN 500 MG TAB PO PRN (19:00)
--- NOTE | 2024-07-06 19:30 | NUR ---
Report received from Alice GRAVES. Patient extubated at 191. Patient has 1:1 sitter in room with direct visualization.
--- NOTE | 2024-07-06 19:48 | NUR ---
PT BECAME MORE AROUSABLE AND SPONTANEOUSLY OPENING EYES AND POINTING AT TUBE. CALLED DR AND RT. RT CHIRAG DID BREATHING TRIAL AND EXTUBATED PT. TOLERATED WELL. HAD A COUPLE OF COUGHS AND SAID HI TO FRIEND IN ROOM. ANSWERED QUESTIONS APPROP. WITH A QUIET SCRATCHY VOICE. WENT BACK TO SLEEP WITH STABLE VS.EMPTIED BACA FOR ANOTHER 440, INFORMED OF INCREASING FEVER AND UO.
--- NOTE | 2024-07-06 20:15 | NUR ---
Patient drowsy but awakens to voice. Some incomprehensible speech however becoming increasingly more alert and oriented. Patient febrile at this time with hinson temp reading. Able to pass bedside swallow eval and take 2 tabs tylenol PO with water. Discussed CBG results of [address] Khan, now that patient is able to take PO, clear liquid diet initiated. Patient drinks orange juice. Polite and calm at this time. Hinson cath draining dilute yellow urine. Lung sounds clear, on RA. bowel tones hyperactive. HRR, tachycardic. BP stable. 1:1 sitter at bedside along with patients friend.
--- NOTE | 2024-07-06 22:56 | NUR ---
Patient continues to be febrile after tylenol administration. Clarke temp reading 102.1. Ice packs and cool cloth to patient. Room cooled and blankets removed.
--- NOTE | 2024-07-06 23:50 | NUR ---
Ice packs frequently rotated sites on patient body for therapeutic cooling and patient comfort. Cool cloth to forehead replaced often. Patient appears comfortable without significant diaphoresis, hinson temp reading between 100.6-101.7.
[2024-07-07] VITALS (17 sets, daily range): BP systolic 92–126; BP diastolic 53–87
--- NOTE | 2024-07-07 03:13 | NUR ---
Patient under direct observation by 1:1 sitter. Normotensive, HRR, tachycardic at 115. Temp 102.1 on hinson reading. Fresh ice to axillary bilat. cool cloth to forehead. Patient tolerates sips of apple juice and ice water. Hinson draining dilute yellow urine.
--- NOTE | 2024-07-07 03:28 | NUR ---
Patient temp 102.3. No antipyretics available at this time. Cool cloth and ice packs applied. Patient tolerating and reports minimal throat discomfort.
--- NOTE | 2024-07-07 04:07 | NUR ---
This RN assumes 15 minute paper charting for patient S.I. risk. Patient currently resting in bed with no needs.
--- NOTE | 2024-07-07 04:15 | NUR ---
PRN tylenol administered. Patient temp 102.6 via hinson probe. Pt calm, polite, and helpful with cares. Hinson draining clear yellow urine. IVF infusing WNL.
--- NOTE | 2024-07-07 05:23 | NUR ---
Patient alert and oriented. When this RN discusses plan of care and update on patient status, patient contemplative and states "I just dont know why I took the seroquel". This RN provides extensive counseling about patient status and desire for medical team to provide care. Patient is agreeable, cooperative and responds well. Cool cloth to neck, fan on patient, cool water provided and patient tolerating sips.
[2024-07-07 05:37] LABS: BASOPHILS 0.1 % (0-2); EOSINOPHILS 0.2 % (0-6); HEMATOCRIT 38.6 % (35.0-50.0); LYMPHOCYTES 5.2 % (24-44); MCH 30.8 (27-36); MCHC 33.8 g/dl (30-36); MCV 91.2 fl (81-99); MONOCYTES 3.3 % (0-12); NEUTROPHILS 91.2 % (39-80); PLATELET COUNT 242 K/uL (140-440); RBC 4.23 M/ul (4.3-5.7); RDW 13.2 (10.5-15.0)
[2024-07-07 05:52] LABS: ALBUMIN 3.3 g/dL (3.4-5.0); ALBUMIN/GLOBULIN RATIO 0.87 (1.1-2.4); ANION GAP 17.5 (7-21); BUN/CREATININE RATIO 2.73 (6.0-28.6); CALCIUM 8.8 mg/dL (8.5-10.1); CREATININE, SERUM 0.73 mg/dL (0.55-1.02); MAGNESIUM 1.5 mg/dL (1.8-2.4); POTASSIUM 3.5 mmol/L (3.5-5.1); PROTEIN, TOTAL 7.1 g/dL (6.4-8.2)
[2024-07-07 06:14] LABS: BILIRUBIN, TOTAL 1.1 ng/dL (0.2-1.0)
--- NOTE | 2024-07-07 06:55 | NUR ---
This RN and security responsible for direct visualization and 15 minute paper charting. Patient resting with eyes closed, even and unlabored respirations, temperature decreasing.
--- NOTE | 2024-07-07 07:35 | NUR ---
REPORT RECEIVED FROM FINANCIAL ANALYSIS ADVISOR ELY DU.
[2024-07-07] MEDS ORDERED: MAGNESIUM SULFATE 2 GM/50 ML BAG IV ONE (07:45)
--- NOTE | 2024-07-07 07:58 | NUR ---
PATIENT IS LYING IN BED WITH EYES CLOSED AND RESPIRATIONS ARE EVEN AND UNLABORED. CALL LIGHT IN REACH.
--- NOTE | 2024-07-07 08:10 | NUR ---
VITAl SIGNS TAKEN AND DOCUMENTED IN THE CHART. MORNING MEDICATIONS ADMINISTERED PER THE EMAR. FULL ASSESSMENT COMPLETE AND DOCUMENTED IN THE CHART. PATIENT IS ALERT AND ORIENTED. WHEN RN ASKED WHY THE PATIENT WAS HERE, PATIENT STATED "I DON'T WANT TO SAY, IT IS EMBARASSING". PATIENT IS ON ROOM AIR. LUNG SOUNDS ARE CLEAR IN THE RUL, ERIC, AND LLL. CRACKLES NOTED IN THE RLL. CARDIAC WITH NORMAL S1 AND S2 ON AUSCULTATION. PATIENT IS ON THE MONITOR AND WITH TACHYCARDIAC. RADIAL AND PEDAL PULSES ARE STRONG BILATERALLY. CAPILLARY REFILL IS LESS THAN 3 SECONDS IN THE UPPER AND LOWER EXTREMITIES BILATERALLY. PATIENT IS ON A CLEAR LIQUID DIET. BOWEL TONES ARE ACTIVE IN ALL FOUR QUADRANTS. SENSATION INTACT WITH NO COMPLAINTS OF NUMBNESS OR TINGLING. PATIENT RATED PAIN 3/10 IN THE BACK BUT IS NOT REQUESTING ANYTHING FOR PAIN AT THIS TIME. PATIENT WITH WITH VISITOR COLTEN AT THE BEDSIDE. PATIENT STATED NO FURTHER NEEDS AT THIS TIME. CALL LIGHT AND PERSONAL BELONGINGS ARE WITHIN REACH.
--- NOTE | 2024-07-07 08:30 | NUR ---
COLTEN, PATIENT NEXT KIN SPOKE WITH THIS RN AT THE NURSES STATION. COLTEN HAS EXPRESSED CONCERN REGARDING THERAPY, NIGHT TERRORS, INSOMNIA, ANXIETY, AND A LONG-TERM. ELY TAPIA NOTIFIED COLTEN THAT GERONIMO BE SOMETHING THAT CCS HANDLES. RN VERIFIED THAT COLTEN IS ON THE CONTACT LIST. CASE MANAGEMENT NOTIFIED OF COLTEN WANTING TO SPEAK WITH HER. CCS HAS BEEN NOTIFIED BY ON PATIENT STATUS. COLTEN WITH NO FURTHER QUESTIONS OR CONCERNS AT THIS TIME. COLTEN RETURNS TO THE PATIENT BEDSIDE.
--- NOTE | 2024-07-07 08:51 | NUR ---
CCS CALLED TO UPDATE THEM ON PT'S CONDITION AND THEY STATE THEY WILL BE IN TO SEE HER TODAY.
[2024-07-07] MEDS ORDERED: CEFTRIAXONE/SODIUM CHLORIDE 1 GM/100 ML PIGGYBACK IV SCH (09:00)
--- NOTE | 2024-07-07 10:30 | NUR ---
PATIENT IS BACK TO THE ROOM AND RECONNECTED TO THE MONITOR AFTER GETTING A SHOWER. VITAL SIGNS STABLE AND PATIENT TOLERATED WELL. NEW LINENS ARE ON THE BED UPON RETURN. LIZINI IS IN THE ROOM AT THIS TIME. PATIENT PROVIDED WARM BLANKETS PER REQUEST. PATIENT STATED NO FURTHER NEEDS AT THIS TIME. CALL LIGHT AND PEROSNAL BELONGINGS ARE WITHIN REACH.
--- NOTE | 2024-07-07 11:13 | NUR ---
CCS IS MEETING WITH THE PATIENT AT THIS TIME. PATIENT REMAINS ON THE MONITOR. CALL LIGHT AND PERSONAL BELONGINGS ARE WITHIN REACH.
--- NOTE | 2024-07-07 11:52 | NUR ---
NOTIFIED OF PATIENT BACA CATHETER. THIS RN RECEIVED VERBAL ORDER TO D/C THE BACA CATHETER AT THIS TIME. ORDERS RECEIVED FROM TO EDIT THE ROCEPHIN DOSE TO 5 DAYS, ADD AZITHROMYCIN 500 MG PO DAILY, AND TO ADD PO COMPAZINE 5 MG Q.4 HOURS PRN. STATED NO FURTHER ORDERS AT THIS TIME. ORDERS INPUT BY THIS RN. CALL EDNED.
[2024-07-07] MEDS ORDERED: PROCHLORPERAZINE MALEATE 5 MG TAB PO PRN (12:00)
[2024-07-07] MEDS ORDERED: PHARMACY RENAL DOSE ADJUSTMENT 1 DOSE MISC PO SCH (12:00)
[2024-07-07] MEDS ORDERED: AZITHROMYCIN 250 MG TAB PO SCH (12:00)
--- NOTE | 2024-07-07 12:22 | NUR ---
1200 MEDICATIONS, VITAL SIGNS, AND ASSESSMENT COMPLETE AT THIS TIME. PATIENT IS LYING IN BED AFTER SPEAKING WITH CCS. PATIENT IS ALERT AND ORIENTED. PATIENT IS ON ROOM AIR AND LUNG SOUNDS ARE CLEAR IN ALL LUNG BEAVERS BILATERALLY. PATIENT WITH NO SOB AND PATIENT DOES HAVE AN OCCASSIONAL PRODUCTIVE COUGH. PATIENT IS ON THE MONITOR AND IS TACHYCARDIC. RADIAL AND PEDAL PULSES REMAIN STRONG. CAPILLARY REFILL IS LESS THAN 3 SECONDS IN THE UPPER AND LOWER EXTREMITIES BILATERALLY. IV IN THE RAC FLUSHED WITH 10 ML NORMAL SALINE. IV DRESSING IS CLEAN, DRY, AND INTACT. PATIENT IS ON A CLEAR LIQUID DIET. PATIENT WITH NO COMPLAINTS OF NAUSEA OR VOMITTING. PATIENT WITH NO COMPLAINTS OF PAIN. SENSATION INTACT WITH NO NUMBNESS OR TINGLING. LR IS INFUSING AT 125 ML/HR. BACA CATHETER REMOVED AND BALDEV CARE COMPLETE. PATIENT TOLERATED WELL. PATIENT VISITOR RETURNS TO THE ROOM. PATIENT STATED NO FURTHER NEEDS AT THIS TIME. CALL LIGHT AND PERSONAL BELONGINGS IN REACH.
--- NOTE | 2024-07-07 12:23 | NUR ---
medications reconciled
--- NOTE | 2024-07-07 13:13 | NUR ---
CARE OF PATIENT ASSUMED AT 1230. PATIENT RESTING IN BED AT THIS TIME. PT REMAINS ON A 1:1 Q15 MINUTE CHARTING. PT REPORTS FEELING A LITTLE DIZZY AND NOT COMPLETELY LIKE HERSELF. PT STILL WORKING ON DRINKING FLUIDS. PT'S FRIEND JI IN ROOM HAS MANY QUESTIONS AND IS WANTING TO KNOW DETAILS ABOUT PATIENT'S DISCHARGE PLAN TO AN INPATIENT PSYCHIATRIC HOSPITAL. EXPLAINED THAT THESE DETAILS ARE NOT YET KNOWN, AND THAT THERE WILL BE MORE CONVERSATIONS ABOUT THESE SPECIFIC QUESTIONS IN THE DAYS TO COME. JI IS CONCERNED THAT THE PATIENT HERSELF WILL NOT BE ABLE TO GET ALL OF HER QUESTIONS ANSWERED. I ENCOURAGED THE PATIENT TO WRITE DOWN ON A PIECE OF PAPER ALL OF HER QUESTIONS REGARDING THE DISCHARGE PLAN.
[2024-07-07] MEDS ORDERED: guaiFENesin 600 MG TABCR PO ONE (14:00)
--- NOTE | 2024-07-07 14:04 | EKG ---
[facility] [address] [place] [address] Signed Sinus tachycardia Nonspecific ST abnormality Abnormal ECG When compared with ECG of 15-JAN-2024 07:15, Vent. rate has increased BY [address] no longer elevated in Inferior leads Nonspecific T wave abnormality now evident in Inferior leads T wave amplitude has decreased in Lateral leads Confirmed by Ani Hicks MD ([id number]) on 07/07/2024 2:03:59 PM Electronically Signed By: ANI HICKS DO 07/07/24 1404 PATIENT NAME: STELLA HOYT Electrocardiogram DATE OF : [birth year] PHYSICIAN: ANI HICKS DO REPORT #: [id number] REPORT IS CONFIDENTIAL AND NOT TO BE RELEASED WITHOUT AUTHORIZATION
--- NOTE | 2024-07-07 14:04 | EKG ---
[facility] [address] [place] [address] Signed Normal sinus rhythm Normal ECG When compared with ECG of 05-JUL-2024 20:00, (Unconfirmed) Vent. rate has decreased BY [address] elevation now present in Inferior leads Nonspecific T wave abnormality no longer evident in Inferior leads Confirmed by Ani Hikcs MD ([id number]) on 07/07/2024 2:04:16 PM Electronically Signed By: ANI HICKS DO 07/07/24 1404 PATIENT NAME: STELLA HOYT Electrocardiogram DATE OF : [birth year] PHYSICIAN: ANI HICKS DO REPORT #: [id number] REPORT IS CONFIDENTIAL AND NOT TO BE RELEASED WITHOUT AUTHORIZATION
--- NOTE | 2024-07-07 15:15 | NUR ---
Lengthy message from pts friend Shelbi. She is requesting infor regarding pts dc plan and also wanting to know why she was not called for the meeting with CM and CCS. Notified CM is not included in the CCS interviews as they are private. Cm was not notified or agreed to any meeting. Friend is very concerned pt will dc in the next day or so and she will be working. She has pts clothing and states she has to move her out of her apartment. I told her to bring 3 or 4 days of clothing and leave them in the room. She has the impression pt will be placed into a treatment plan in the next day or so. I let her know this is not likely. Pt will need to be medically cleared by the hospitalist before she can discharge to treatment. Friend cont. to ask multiple questions about pt and I let her know she needs discuss with the pt or speak with CCS as pt has a higher level of confidentiality with mental health. I also let her know if pt needs clothing we can always get her sweats through the ER. I encouraged her to call [facility]CS to answer the questions she states she is attempting to obtain for Tracey and Tracey can give them permission to speak with her.
--- NOTE | 2024-07-07 15:53 | NUR ---
CCS WAS IN TO ASSESS PATIENT TODAY. SHE HAS NOT YET BEEN MEDICALLY CLEARED FOR DC. PLAN FOR INPATIENT PLACEMENT FOR PSYCHIATRIC NEEDS AT [place].
--- NOTE | 2024-07-07 18:36 | NUR ---
PATIENT CONTINUES TO REST IN BED. PT ATE HER DINNER WELL TONIGHT. PT STILL HAS A FRIEND IN ROOM VISITING WITH HER. IVF CONTINUE AT 125 ML/HR. MRSA SWAB SENT. PT REMAINS 1:1 WITH Q15 CHARTING ON SAFETY. PT REMAINS TACHY AT THIS TIME,CURRENTLY 120s.
--- NOTE | 2024-07-07 19:08 | NUR ---
PATIENT C/O FEELING HOT. ORAL TEMP IS 101.4. PRN TYLENOL GIVEN WELL COLD WASH CLOTH TO BACK OF NECK. PT'S BLANKETS ALSO TAKEN OFF AND ONLY HAS A SHEET NOW. PT ALSO GIVEN AN IS AND USES THIS WITH GOOD EFFORT. PT THEN COUGHING AND ABLE TO EXPECTORATE THICK YELLOW SPUTUM. PT EDUCATED ON USE OF THIS THROUGH THE DAY AND NIGHT. PT'S FRIEND JI REMAINS IN ROOM. PT CALM, COOPERATIVE AND HAS NOT ENDORSED ANY FEELINGS OF SUICIDAL IDEATION TODAY.
--- NOTE | 2024-07-07 19:50 | NUR ---
handoff report received from day shift RN. patient laying awake in bed watching tv with friend at bedside. patient remains 1:1 Q15 minute charting. no needs at this time. patient door and curtain remain open.
[2024-07-07] MEDS ORDERED: metroNIDAZOLE 250 MG TAB PO SCH (20:00)
--- NOTE | 2024-07-07 22:05 | NUR ---
PATIENT PROVIDED WITH COLORING BOOK AND MARKERS PER REQUEST. PATIENT FRIEND REMAINES AT BEDSIDE. PATIENT PROVIDED WITH FRESH ICE WATER. NO FURTHER NEEDS AT THIS TIME.
[2024-07-07 22:32] LABS: INFLUENZA B NAA NEGATIVE (NEGATIVE); RESPIRATORY SYNCYTIAL VIR NAA NEGATIVE (NEGATIVE)
--- NOTE | 2024-07-07 23:15 | NUR ---
PATIENT RESTING IN BED WITH EYES CLOSED, RESPIRATIONS EVEN AND UNLABORED. PATIENT IVF INFUSING PER ORDER, IV SITE WNL. PATIENT FRIEND REMAINS AT BEDSIDE. NO NEEDS AT THIS TIME. PATIENT DOOR AND CURTAIN REMAIN OPEN, CALL LIGHT WITHIN REACH.
[2024-07-08] VITALS (10 sets, daily range): BP systolic 95–119; BP diastolic 50–90
--- NOTE | 2024-07-08 00:20 | NUR ---
PATIENT REMAINS ON 1:1 Q15 MINUTE CHARTING FOR SAFETY. PATIENT FRIEND COLTEN REMAINS AT BEDSIDE. PATIENT REMAINS ON ROOM AIR WITH O2 SATURATION AT 93%, HEART RATE 92. PATIENT IV FLUIDS INFUSING PER ORDER, IV SITE WNL. ASSESSMENT COMPLETE, NO NEW CHANGES AT THIS TIME. PATIENT DOOR AND CURTAIN REMAIN OPEN, CALL LIGHT WITHIN REACH.
--- NOTE | 2024-07-08 01:30 | NUR ---
patient resting in bed with eyes closed, respirations even and unlabored. patient vital signs stable. patient friend Shelbi remains at bedside. no needs at this time. call light within reach.
--- NOTE | 2024-07-08 02:12 | NUR ---
patient temp taken orally; 98.7. patient has no needs at this time. call light within reach.
--- NOTE | 2024-07-08 03:20 | NUR ---
PATIENT RESTING IN BED WITH EYES CLOSED, RESPIRATIONS EVEN AND UNLABORED. NO NEEDS AT THIS TIME. CALL LIGHT WITHIN REACH. PATIENT DOOR AND CURTAIN REMAIN OPEN.
--- NOTE | 2024-07-08 04:22 | NUR ---
patient assisted to bathroom x1 person SBA. patient steady on feet. patient voids 650cc of urine and back to bed. patient provided with fresh ice water. no further needs at this time. patient friend Shelbi remains at bedside. patient door and curtain remain open. call light in reach.
[2024-07-08 05:41] LABS: BASOPHILS 0.1 % (0-2); EOSINOPHILS 0.7 % (0-6); HEMATOCRIT 35.3 % (35.0-50.0); LYMPHOCYTES 7.9 % (24-44); MCH 30.7 (27-36); MCV 90.4 fl (81-99); MONOCYTES 4.7 % (0-12); NEUTROPHILS 86.6 % (39-80); PLATELET COUNT 232 K/uL (140-440); RDW 13.4 (10.5-15.0)
[2024-07-08 05:52] LABS: ANION GAP 13.5 (7-21); BUN/CREATININE RATIO 2.98 (6.0-28.6); CALCIUM 8.6 mg/dL (8.5-10.1); CREATININE, SERUM 0.67 mg/dL (0.55-1.02); POTASSIUM 3.5 mmol/L (3.5-5.1)
--- NOTE | 2024-07-08 06:00 | NUR ---
Patient oral temp taken; 100.5. PRN Tylenol given per emar. Patient complains of stomach pain, PRN Prochlorperazine given per emar. Patient provided with fresh ice water, and new gown. no further needs at this time. call light within reach. patient door and curtain remain open. patient remains on 1:1 Q15 minute charting for safety.
--- NOTE | 2024-07-08 07:45 | NUR ---
REPORT RECIEVED FROM VOCATIONAL EDUCATION TEACHER RN. PATIENT RESTING IN BED WITH A FRIEND AT THE BEDSIDE AND A 1:1 SITTER. PATIENT ON THE MONITOR, SPO2 CONTINUOUS MONITOR, AND BP CHECKS Q1 HOUR. PER REPORT PATIENT CONTINUES TO HAVE LOW GRADE FEVER. TYLENOL GIVEN THIS AM.
--- NOTE | 2024-07-08 08:59 | NUR ---
THIS RN IN TO ASSIST WITH CARES. PATIENT UP TO THE BATHROOM FOR 30 MINUTES. THIS RN WITH PATIENT DURING THIS TIME. PATIENT BACK TO BED AFTER LINENS CHANGED. PATIENT BRUSHED HER TEETH AND WASHED HER FACE IN THE BATHROOM. PATIENT NOW RESTING IN BED AND EATING HER BREAKFAST. PATIENT REPORTS COUGH, SORE THROAT, AND CHEST PAIN WITH COUGH. PATIENT HAS A FLAT AFFECT. PATIENT DENIES ANY OTHER NEEDS AT THIS TIME.
[2024-07-08] MEDS ORDERED: MAGNESIUM SULFATE 2 GM/50 ML BAG IV ONE (09:00)
--- NOTE | 2024-07-08 09:27 | NUR ---
UR CONCURRENT REVIEW: [facility] IN[facility] FOR DRUG INGESTION/OD, VARIANCE FOR GL DAY 2 ENTERED. [facility] INPT 07/06/24 @ 1248 ORDER MATCHES REG CLINICAL FAXED TO [facility] FOR AUTH REVIEW DISCHARGE PENDING FURTHER MENTAL HEALTH EVAL 07/11/24
--- NOTE | 2024-07-08 09:58 | NUR ---
CALL FROM POISON CONTROL, UPDATE GIVEN, STATE THEY WILL BE SIGNING OFF ON HER CASE BUT TO CALL THEM IF WE HAVE ANY QUESTIONS.
--- NOTE | 2024-07-08 10:31 | NUR ---
PT GOT UP TO BATHROOM, SAT ON TOILET APPROX 20 MINUTES, THEN GOT BACK IN BED. FRIEND IN TO SEE PT.
--- NOTE | 2024-07-08 11:15 | NUR ---
THIS RN BACK AND RESUMING CARE AT THIS. PER REPORT HUDSON HASD NOW BEEN MEIDCALLY CLEARED AND CCS WAS NOTIFIED. MD SIGNED PAPERWORK AND ALSO TRANSFERED PATIENT TO A MEDICAL PATIENT. CCS WILL BE IN TO ASSESS PATIENT AND MAKE A PLAN OF CARE FOR PATIENT.
--- NOTE | 2024-07-08 12:00 | NUR ---
CCS HERE TO EVALUATE PATIENT.
--- NOTE | 2024-07-08 13:30 | NUR ---
CCS STAFF IN WITH PATIENT FOR PAST 1 HOUR. PLAN REVIEWED AND PATIENT WILL BE PLACED ON AN INVOLUNTATY HOLD. CC WILL START THE ADMISSION PROCESS FOR PATIENT TO GO TO ANOTHER FACILITY FOR PSYCH CARE AND TREATMENT. PATIENT AGREEABLE TO PLAN. PATIENT SITTING IN BED AND APPEARS CALM. PATIENT HAS HAD A CONTINUOPUS 1:1 FOR HER SAFETY. CALL LIGHT IN REACH. WILL TRANFER PATIENT TO ROOM 126 AND REMOVE PERSONAL BELONGIGNS, HAZARDOUS ITEMS IN THE ROOM, AND CONTINUE DIRECT 1:1 OBSERVATION.
--- NOTE | 2024-07-08 13:50 | NUR ---
VISITED DURING SPIRITUAL CARE ROUNDS. PT SUBDUED BUT ENGAGED IN CONVERSATION. PHYSICALLY ABLE TO BE STILL, EXPRESSED NO DESIRE TO DISCUSS SITUATION. CONSTRUCTION FIELD ENGINEER PROVIDED SUPPORTIVE PRESENCE, PRAYER, SACRED TEXT, FACILITATED INTERACTION WITH THERAPY ANIMAL. PT EXPRESSED GRATITUDE.
--- NOTE | 2024-07-08 13:52 | NUR ---
Patient moved to room 126 from room 128. Patient is a med surg patient now. CCS is working on placement for patient. patient slightly more anxious with changing rooms and belongigns being removed from the room. Security notified of room changes and patient status. Patient more relaxed now and plan of care reviewed. Awaiting supervisor telephone clerks to send care plan to sign with patient.
--- NOTE | 2024-07-08 15:30 | NUR ---
PATIENT HAD A VISITOR IN TO SEE HER. THIS RN IN AND REVIEWED PLAN OF CARE WITH PATIENT FOR EXPECTED DAILY ROUTINES AND CARES. PATIENT AGREEABLE. PATIENT BELONGINGS AT THE NURSES STATION. PATIENT WILL CONTINUE TO HAVE A 1:1 DURING HER STAY. PATIENT DENIES ANY OTHER QUESTIONS AT THIS TIME. FRESH WATER PROVIDED.
--- NOTE | 2024-07-08 17:00 | NUR ---
SECURITY AT THE BEDSIDE FOR 1:1. PATIENT EATING DINNER.
--- NOTE | 2024-07-08 18:25 | NUR ---
PATIENT LAYING ON BED WITH TV ON. PATIENT FINISHED DINNER. NO OTHER NEEDS AT THIS TIME.
--- NOTE | 2024-07-08 19:40 | NUR ---
handoff report received from day shift RN. patient sitting up in bed watching TV. patient remains on direct 1:1 observation, sitter at bedside. no needs at this time.
--- NOTE | 2024-07-08 21:30 | NUR ---
PATIENT FRIEND COLTEN IN TO VISIT. SITTER REMAINS AT BEDSIDE FOR DIRECT 1:1 OBSERVATION.
[2024-07-08] MEDS ORDERED: BENZONATATE 100 MG CAP PO PRN (23:45)
[2024-07-08] MEDS ORDERED: MELATONIN 3 MG TAB PO SCH (23:45)
--- NOTE | 2024-07-08 23:46 | NUR ---
PT CALLS TO STATE "I FEEL LIKE IM BURNING UP, I HAVE A COUGH AND IM HAVING TROUBLE SLEEPING." MD IN DEPARTMENT AND UPDATED, WILL PUT IN ORDERS FOR MELATONIN AND COUGH MED.
--- NOTE | 2024-07-09 00:27 | NUR ---
PRN MELATONIN AND TESSALON PERLES ADMINISTERED PER EMAR. PATIENT HAS NO FURTHER NEEDS AT THIS TIME. SITTER REMAINS AT BEDSIDE.
--- NOTE | 2024-07-09 01:30 | NUR ---
PATIENT LAYING IN BED WITH EYES CLOSED, RESPIRATIONS EVEN AND UNLABORED. NO NEEDS AT THIS TIME. SITTER REMAINS AT BEDSIDE.
[2024-07-09 02:45] VITALS: BP 112/67
--- NOTE | 2024-07-09 02:50 | NUR ---
IN PATIENT ROOM FOR VITALS. PATIENT IV SITE NOTED TO BE LEAKING AND PATIENT STATES SITE IS PAINFUL. IV TAKEN OUT, TIP INTACT. GUAZE AND COBAND APPLIED. PATIENT VITAL SIGNS STABLE. PATIENT UPDATED ON PLAN OF CARE FOR THE MORNING, ALL QUESTIONS ANSWERED. PATIENT REMAINS DIRECT 1:1 OBSERVATION, SITTER AT BEDSIDE.
--- NOTE | 2024-07-09 04:15 | NUR ---
PATIENT RESTING IN BED WITH EYES CLOSED, RESPIRATIONS EVEN AND UNLABORED. PATIENT HAS NO NEEDS AT THIS TIME. SITTER REMAINS AT BEDSIDE FOR 1:1 OBSERVATION.
[2024-07-09 06:36] VITALS: BP 107/68
--- NOTE | 2024-07-09 06:40 | NUR ---
NEW IV STARTED IN PATIENT LEFT HAND. PATIENT TOLERATED WELL. NO FURTHER NEEDS AT THIS TIME. SITTER REMAINS AT BEDSIDE FOR DIRECT 1:1 OBSERVATION.
--- NOTE | 2024-07-09 08:06 | NUR ---
REPORT RECIVED FROM NARROW GAUGE ENGINEER RN. PATIENT RESTING ON HER SIDE IN BED AT THIS TIME. PATIENT HAS 1:1 SITTER WITH HER FOR PATIENTS SAFETY. PER REPORT PATIENT FELL ASLEEP AROUND 0300 AND HAS BEEN RESTING BETTER SINCE THAT TIME.
--- NOTE | 2024-07-09 08:07 | NUR ---
PATIENT RR EVEN AND UNLABORED AT 16 BREATHS PER MIN. PATIENT EYES CLOSED. SECURITY SITTING 1:1 WITH PATIENT. NOTIFIED TO CALL STAFF WHEN PATIENT IS AWAKE AND WILL BRING BREAKFAST AT THAT TIME.
[2024-07-09 09:50] VITALS: BP 104/61
--- NOTE | 2024-07-09 10:00 | NUR ---
THIS RN IN TO DO MEDICATIONS, AM ASSESSMNET, AND VITALS. PATIENT HAS BEEN RESTING THIS AM. PATIENT REFUSED BREAKFAST THIS AM. PATIENT STATES "IS [facility]CS GOING TO BE HERE TODAY, I THINK I AGREED TO SOME THINGS YESTERDAY THAT I DIDNT AGREE WITH". UPDATED PATIENT THAT CCS WOULD BE IN TO EVALUATE PATIENT TODAY AND SHE CAN ADDRESS HER CONCERNS. PATIENT IS NOTED TO BE FLAT THIS AM AND NOT ENGAING IN MUCH CONVERSATION. PATIENT SITTING IN BED UPON RN EXITING WITH 1:1 SITTER IN THE ROOM WITH PATIENT.
--- NOTE | 2024-07-09 10:15 | NUR ---
CCS HERE TO EVALATE PATIENT. ADDRESSED PATIENTS CONCERNS FOR CCS.
--- NOTE | 2024-07-09 11:03 | NUR ---
PT NOT AVAILABLE FOR VISIT. PROVIDED PRAYER.
--- NOTE | 2024-07-09 12:00 | NUR ---
Stopped to check on Tracey and see if she has any needs. Pt wanting to tell me "something". She is tearful and making statements about, "the wrong choices I've made". She wishes she would have never move to [place] she made many wrong choices and had bad experiences. She spoke a little about placement under the care of her aunt as her parents could not parent. She has been in mental hospitals and came to [place] when placed for treatment. She is concerned she made the wrong choice for where she will go when she leaves here. We discussed she is on a mental health hold and [facility] is checking for placement that will best serve her needs. She asks if she can see her friend Shelbi. I let her know her friend called 2 days ago and stated she would be working. She may be at work. Per nurses pt would not speak with them or [facility] today. Updated I encouraged the pt to speak with [facility]CS as they are the mental health professionals.
--- NOTE | 2024-07-09 12:30 | NUR ---
CASE MANAGEMENT SITTING IN WITH PATIENT. PATIENT HAS REFUSED TO TALK WITH THIS RN, CCS, AND 1:1 SITTER TODAY. THIS RN HAS TRIED TO HAVE PATIENT DO AM CARES AND EAT TODAY, BUT PATIENT HAS DECLINED. PATIENT DID STATE "YOU CAN LEAVE THE LUNCH AND ILL SEE IF I WANT TO EAT ANY".
[2024-07-09 12:58] VITALS: BP 121/85
[2024-07-09] MEDS ORDERED: LACTOBACILLUS RHAMNOSUS GG 1 EACH CAP PO SCH (13:59)
--- NOTE | 2024-07-09 15:25 | NUR ---
PATIENT HAS AN RN SITTER 1:1 WITH PATIENT. PATIENT IS UP IN THE BATHROOM SHOWERING WITH OBSERVATION D/T PATIENTS SAFETY. PATIENT IS PROVIDING HER OWN CARES.
[2024-07-09 16:44] LABS: ALCOHOL, MEDICAL <3 ng/dL (<3)
[2024-07-09 17:00] VITALS: BP 118/81
[2024-07-09] MEDS ORDERED: metroNIDAZOLE 250 MG TAB PO SCH (17:00)
--- NOTE | 2024-07-09 17:49 | NUR ---
PATIENT SITTING IN BED WITH 1:1 SITTER AT THE BEDSIDE. THIS RN BRAIDED PATIENTS HAIR AT THIS ITME. PATIENT TOLERATED DINNER WELL. TV TURNED ON FOR PATIENTS COMFORT AND DISTRACTION.
--- NOTE | 2024-07-09 19:47 | NUR ---
REPORT RECEIVED FROM ELY CHACKO. PATIENT SITTING UP IN BED WHILE READING. DENIES NEEDS AT THIS TIME. 1:1 OBSERVATION CONTINUES.
[2024-07-09 20:00] VITALS: BP 111/72
--- NOTE | 2024-07-09 21:51 | NUR ---
PATIENT RESTING IN BED WITH EYES CLOSED. RESPIRATIONS EVEN AND UNLABORED. 1:[address]
--- NOTE | 2024-07-09 22:51 | NUR ---
PATIENT CONTINUES TO REST IN BED WITH EYES CLOSED, RESPIRATIONS EVEN AND UNLABORED. 1:[address]
[2024-07-10 00:14] VITALS: BP 108/67
--- NOTE | 2024-07-10 00:30 | NUR ---
PATIENT SITTING UP IN BED WHILE AWAKE. VS CHARTED. FRESH WATER GIVEN PER REQUEST. PATIENT ONLY CONVERSANT WITH THIS RN WHEN ASKED DIRECT QUESTIONS. SLOW TO RESPOND, DOES NOT GIVE DIRECT ANSWERS BUT RATHER STATES "I AM OK" OR "I WILL BE OK". WHEN ASKED IF SHE HAS ANY CURRENT SI OR SELF HARM THOUGHTS, SHE DOES NOT RESPOND YES OR NO BUT RATHER STATED "I AM OK". ENCOURAGED PATIENT TO REPORT ANY THOUGHTS OF SELF HARM. DURING INTERACTION, PATIENT AVOIDED EYE CONTACT AND SPOKE IN A SOFT CHILD LIKE VOICE. PATIENT DENIES NEEDS OR CONCERNS AT THIS TIME. 1:[address] FOR SAFETY.
--- NOTE | 2024-07-10 02:15 | NUR ---
PATIENT RESTING IN BED WITH EYES CLOSED. 1:[address] FOR SAFETY.
--- NOTE | 2024-07-10 02:56 | NUR ---
PATIENT WAKES UPON THIS RN IN ROOM TO BREAK 1:1 OBSERVER. ALLOWS FOR LUNG AUSCULTATION. DENIES PAIN OR NEEDS BUT PROMPTLY CLOSES EYES TO GO BACK TO RESTING. CONTINUOUS 1:[address]
[2024-07-10 04:58] VITALS: BP 95/62
--- NOTE | 2024-07-10 05:03 | NUR ---
PATIENT WAKES TO NAME. VS CHARTED. PATIENT DENIES NEEDS. EXPRESSED DESIRE TO GO BACK TO SLEEP. 1:[address]
[2024-07-10 06:00] VITALS: BP 120/62
--- NOTE | 2024-07-10 07:30 | NUR ---
REPORT RECIVED FORM PEDIATRIC RADIOLOGIST RN. PATIENT SLEEPING WELL PER REPORT WITH 1:1 SITTER AT THE BEDSIDE. PATIENT VITALS STABLE OVERNIGHT. PER REPORT FURTHER DOCUMENTATION SENT TO [facility]CS FOR PLACEMENT OPTIONS.
[2024-07-10] MEDS ORDERED: AMOXICILLIN/CLAVULANATE K 875 MG TAB PO SCH (08:00)
--- NOTE | 2024-07-10 08:30 | NUR ---
PATIENT SLEEPING WITH EYES CLOSED. PATIENT RR EVEN AND UNLABORED AT 18. PATIENT HAS A FLASK FITTER SITTING 1:1 WITH PATIENT FOR HER SAFETY.
[2024-07-10 09:59] VITALS: BP 116/69
--- NOTE | 2024-07-10 10:30 | NUR ---
THIS RN IN AT BEDSIDE 1:1 WITH PATIENT.
--- NOTE | 2024-07-10 11:00 | NUR ---
PATIENT SITTING IN BED AND WAS TALKING WITH THIS RN. PATIENT WANTED TO MAKE SURE AND ASK SEVERAL QUESTIONS WHEN CCS WAS PRESENT ABOUT HER PLACEMENT. WILL ADDRESS CONCERNS WITH CCS WHEN THEY GET HERE. PATIENT IS THE MOST TALKATIVE SHE HAS BEEN WITH THIS RN. PATIENT TALKED ABOUT HER CONCERNS OF WHERE SHE MIGHT GO AFTER [place] AND WANTING TO LEAVE AND GO BACK TO THE [place].
--- NOTE | 2024-07-10 11:29 | EKG ---
[facility] [address] [facility] [address] [place] [address] Signed Normal sinus rhythm Normal ECG When compared with ECG of 06-JUL-2024 07:29, No significant change was found Confirmed by Cecil Mao MD ([id number]) on 07/10/2024 11:29:22 AM Electronically Signed By: CECIL MAO MD 07/10/24 1129 PATIENT NAME: STELLA HOYT IGOR PEREZ Electrocardiogram DATE OF : [birth year] PHYSICIAN: CECIL MAO MD REPORT #: [id number] REPORT IS CONFIDENTIAL AND NOT TO BE RELEASED WITHOUT AUTHORIZATION
--- NOTE | 2024-07-10 12:27 | NUR ---
CCS VISITED WITH PATIENT. PER CCS PATIENT WAS TALKATIVE AND ADDRESSED HER CONCERNS OF DIVERSION OR CIVIL COMMITMENT. PER CCS NO ACCEPTANCE AT A FACILITY YET. PATIENT HAS A 1:1 SITTER WITH HER AT ALL TIMES PER POLICY FOR PATIENT SAFETY.
--- NOTE | 2024-07-10 13:45 | NUR ---
PATIENT HAD A VISITOR IN TO SEE HER. PATIENT UP TO THE BATHROOM ONCE AND WAS SITTING. STAFF ABLE TO VISUALIZE PATIENT. PATIENT STOOD FROM THE TOILET FRUSTRATED AND PACING , WASHED HER HANDS, AND BACK TO BED. PATIENT NOW FRUSTRATED, ROCKING, AND RINGING HER HANDS. ATTEPMTED SOME DISTRACTION METHODS. PATIENT REFUSED TO TELL STAFF IF SOMETHING WAS WRONG AND IF SHE NEEDED HELP. STAFF ASKED PATIENT IF SHE NEEDS HER VISITOR TO LEAVE AND PATIENT STATED "NO, SHE CAN STAY". WHEN VISITOR RETURNED PATIENT CALM AND SITTING ON THE BED ON HER KNEES. PATIENT APPEARED MORE CALM AFTER THIS INTERACTION. PATIENT NOW REFUSING TO INTERACT/ANSWER STAFFS QUESTIONS.
--- NOTE | 2024-07-10 15:51 | NUR ---
SITTER AT THE BEDSIDE FOR 1:1 OBSERVATION. PATIENT LAYING IN BED ON HER SIDE RESTING.
[2024-07-10 16:34] VITALS: BP 103/58
--- NOTE | 2024-07-10 17:30 | NUR ---
PATIENT EATING DINNER. PATIENT APOLOGIZED TO THIS RN ABOUT HER REACTION PRIOR IN THE SHIFT. PATIENT IS MORE CHEERFUL AND INTERACTIVE WITH STAFF. PATIENT HAS CONTINUED TO HAVE SITTER 1:1.
--- NOTE | 2024-07-10 19:45 | NUR ---
REPORT RECEIVED FROM ELY CHACKO. PATIENT SITTING UP IN BED. REPORTS SHE FEELS ANXIOUS AND UNCOMFORTABLE WITH A MALE 1:1. 1:1 OBSERVER SITTING OUTSIDE OF ROOM WITH DIRECT VISUALIZATION OF PATIENT. REVIEWED PLAN OF CARE FOR THE SHIFT AND THAT THIS RN WOULD BE PROVIDING DIRECT CARES. PATIENT REPORTED FEELING LESS ANXIOUS AFTER POC REVIEWED. DENIES NEEDS OR CONCERNS AT THIS TIME.
[2024-07-10 20:49] VITALS: BP 109/67
--- NOTE | 2024-07-10 21:14 | NUR ---
PATIENT OOB TO BR TO VOID. BACK TO BED. PATIENT DENIES CURRENT THOUGHTS OF SUICIDE OR SELF HARM. VS CHARTED. PATIENT CONVERSANT WITH THIS RN. MAKES EYE CONTACT DURING CONVERSATION UNTIL ASKED IF SHE HAD CURRENT SI OR SELF HARM THOUGHTS, THEN PATIENT WOULD LOOK DOWN AND SPEAK IN A SOFT VOICE DURING HER RESPONSE. PATIENT SMILED AT TIMES WHEN REVIEWING PLAN OF CARE AND WHEN REASSURED THAT THIS RN WOULD BE ASSISTING WITH CARES SINCE SHE HAS A MALE 1:1 OBSERVER. PATIENT AGREEABLE TO PLAN. HS MELATONIN GIVEN AND ENCOURAGED REST. PATIENT DENIES NEEDS OR CONCERNS AT THIS TIME.
--- NOTE | 2024-07-10 22:38 | NUR ---
PATIENT RESTING IN BED WITH EYES CLOSED. RESPIRATIONS EVEN AND UNLABORED. 1:[address]
--- NOTE | 2024-07-10 23:18 | NUR ---
PATIENT CONTINUES TO REST IN BED WITH EYES CLOSED. RESPIRATIONS EVEN AND UNLABORED. 1:1 OBSERVATION CONTINUES.
--- NOTE | 2024-07-10 23:34 | NUR ---
[facility] CALLS FOR PATIENT RECORDS RELATED TO PLACEMENT. NEED LABS TO INCLUDE CBC,CMP,UDS, TEST, CCS HOLD PAPER WORK, & CURRENT VITAL SIGNS.
--- NOTE | 2024-07-11 01:20 | NUR ---
RECORDS REQUEST FAXED TO [facility] FOR REVIEW TO ESTABLISH PLACEMENT.
--- NOTE | 2024-07-11 02:00 | NUR ---
PATIENT WAKES EASILY FOR ASSESSMENT. VS CHARTED. PARTICIPATED IN ASSESSMENT BUT MINIMAL INTERACTION FROM PATIENT. REPORTS SHE WOULD LIKE TO GO BACK TO SLEEP. OFFERED RESTROOM BUT PATIENT DENIED NEED AT THIS TIME. 1:[address]
[2024-07-11 02:06] VITALS: BP 105/65
--- NOTE | 2024-07-11 02:25 | NUR ---
LORE FROM [facility] ([phone]) CALLED TO GET MORE INFORMATION ON PATIENT, SPECIFICALLY WHEN SHE WAS EXTUBATED AND REVIEWED MEDICATIONS. LORE TO REACH OUT TO THEIR PROVIDER TO SEE IF THEY WILL ACCEPT AND IF SO, WILL CALL BACK FOR DOCTOR TO DOCTOR DISCUSSION.
--- NOTE | 2024-07-11 03:28 | NUR ---
CALL RECEIVED FROM LORE AT [facility]. SHE REPORTS THAT PATIENT IS ACCEPTED AT [facility] BY DR. UZIEL MELARA. SHE STATES THE PATIENT CAN ARRIVE ANY TIME AFTER 0900. [employer] UPDATED. CALL PLACED TO [facility] TO UPDATE, SPOKE TO DEBBIE AND PROVIDED ACCEPTING DOCTOR'S NAME. DEBBIE REPORTS SHE WILL ARRANGE TRANSPORTATION BUT IT WOULD LIKELY BE AFTER 0700 WHEN THEY WOULD HAVE A BETTER IDEA OF TRANSPORT TIME.
--- NOTE | 2024-07-11 04:26 | NUR ---
CALL RECEIVED FROM DEBBIE AT [facility]. DANNA FROM [facility] WILL BE TRANSPORTING PATIENT TO [facility] AND EXPECTED TO ARRIVE HERE APPROXIMATELY 0600. HAND CLIPPER LYRIC GARCIA.
--- NOTE | 2024-07-11 04:49 | NUR ---
CALL PLACED TO DEBBIE AT [facility] TO ADJUST TIME OF ARRIVAL FOR SECURE TRANSPORT. UNABLE TO CHANGE TIME. BELONGINGS ITEMIZED FOLLOWS COLORED PEN SET FAN T-SHIRT X2 PAJAMA PANTS X3 UNDERWEAR X1 TOOTHPASTE FEMININE CLEANSER DOVE BODY WASH CELL PHONE X2 SMALL PURSE W ID CARD CHIME CARD ENDING IN 94, SPRUCE CARD ENDING IN 65, BMO CARD ENDING IN 68, [place] TRAIL CARD ENDING IN 01, ARROWHEAD REWARDS CARD, SORBENOTS CARD PORTABLE AMMUNITION ASSEMBLY LABORER TENNIS SHOES ASSORTED LILI LOJA STOCKING
--- NOTE | 2024-07-11 05:05 | NUR ---
PATIENT UPDATED ON ACCEPTANCE AT [facility] AND TRANSPORT TIME. PATIENT INITIALLY WAS SOFT SPOKEN BUT THEN BECAME MORE STRONG IN HER VOICE STATING "I TOLD THEM I DIDN'T WANT THAT". WHEN ASK WHO "THEM" WAS, SHE STATED "IT DOESNT MATTER" PATIENT GIVEN OPPORTUNITY TO EXPRESS HERSELF AND THIS RN ASKED HOW SHE WAS FEELING. PATIENT DID NOT RESPOND BUT RATHER GLARED AT BOOT LINER MAKER. ASKED PATIENT IF SHE HAD ANY THOUGHTS OF SELF HARM. PATIENT STATED, "NO" THEN PULLED UP COVERS AND FLOPPED HERSELF DOWN IN BED. 1:1 OBSERVATION REMAINS.
--- NOTE | 2024-07-11 05:24 | NUR ---
REPORT CALLED TO LORE Arcos AT [facility]. LORE DECLINED FULL REPORT THIS RN HAD SPOKEN TO HER EARLIER AND SHE REVIEWED RECORDS.
--- NOTE | 2024-07-11 05:30 | NUR ---
IV REMOVED FROM LEFT HAND WITHOUT DIFFICULTY, TIP INTACT.
[2024-07-11] MEDS ORDERED: AMOX TR-K CLV1 EAC1 PO (05:39)
[2024-07-11 05:41] VITALS: BP 105/68
--- NOTE | 2024-07-11 06:12 | NUR ---
PATIENT D/C WITH DANNA FROM [facility] WITH AGRICULTURAL CONSULTANT AT 06:10. PATIENT FINISHED SNACK AND VOIDED PRIOR TO DEPARTURE. PERSONAL BELONGINGS SENT WITH PATIENT.
--- NOTE | 2024-07-11 06:31 | NUR ---
PATIENT REQUESTS HER FRIEND COLTEN BE NOTIFIED THAT SHE HAS BEEN TRANSFERRED. ATTEMPTED MULTIPLE TIMES BUT RECEIVED A FAST BUSY SOUND EACH ATTEMPT.
== END 2024-07-11 06:10 | disposition short-term general hospital (02) | DRG 917 ==
LOC: ED 19:26 → CCU 07-06 04:37
PROVIDERS: Family Medicine; Student in an Organized Health Care Education/Training Program; ADMIT Student in an Organized Health Care Education/Training Program; ATTEND Student in an Organized Health Care Education/Training Program
PROC: 0BH17EZ Insertion of Endotracheal Airway into Trachea, Via Natural or Artificial Opening (ICD-10-PCS; principal; 2024-07-06)
PROC: 5A1935Z Respiratory Ventilation, Less than 24 Consecutive Hours (ICD-10-PCS; 2024-07-06)
DX: T43.592A Poisoning by other antipsychotics and neuroleptics, intentional self-harm, initial encounter (principal); J18.9 Pneumonia, unspecified organism; N39.0 Urinary tract infection, site not specified; T43.212A Poisoning by selective serotonin and norepinephrine reuptake inhibitors, intentional self-harm, initial encounter; E87.6 Hypokalemia; F31.9 Bipolar disorder, unspecified; I95.9 Hypotension, unspecified; R56.9 Unspecified convulsions; G24.9 Dystonia, unspecified; R19.7 Diarrhea, unspecified; Z88.8 Allergy status to other drugs, medicaments and biological substances; Z79.899 Other long term (current) drug therapy
CPT/HCPCS: 31500; 36415; 51702; 71045; 74018; 80048; 80053; 80307; 81001; 82803; 83735; 84443; 84484; 85025; 87040; 87502; 93005; 93010; 94002; 99285-25; A9270; G0480; J0696; J2060; J2470; J2704; J3010; J3475; J3480; J3490; J7030; J7121; U0002

== ENCOUNTER 2024-08-19 20:14 | Emergency (ER) | payer OTHER ==
[~2024-08-19] VITALS: Ht 160 cm; Wt 63.5 kg
[~2024-08-19 20:14] MED LIST changes: +AMOX TR-K CLV1 EAC1 PO; +QUETIAPINE FUMA50 MG PO
--- OUTSIDE RECORDS SUMMARY | 2024-08-19 20:21 | XMS ---
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 ELars VISIT COUNT (12 MO.) 8 [facility] TOTAL 8 NOTE: Visits indicate total known visits. ED/C VISIT TRACKING (12 MO.) 08/19/2024 20:14 [facility] [place] TYPE: Emergency COMPLAINT: - MENTAL HEALTH ISSUE 07/05/2024 19:26 [facility] [place] TYPE: Emergency COMPLAINT: - OD 07/04/2024 00:53 [facility] [place] TYPE: Emergency COMPLAINT: - SUICIDAL/DEPRESSION DIAGNOSES: - Allergy status to other drugs, medicaments and biological substances - Depression, unspecified - Homelessness unspecified - Insomnia, unspecified - Suicidal ideations 06/14/2024 16:27 [facility] [place] TYPE: Emergency COMPLAINT: - SLEEP PROBLEM DIAGNOSES: - Allergy status to other drugs, medicaments and biological substances - Insomnia, unspecified - Other tank terminal gauger (current) drug therapy - Scoliosis, unspecified - Suicidal ideations 05/10/2024 10:50 [facility] [place] TYPE: Emergency COMPLAINT: - MEDICAL CLEARANCE DIAGNOSES: - Allergy status to other drugs, medicaments and biological substances - Insomnia, unspecified - Other sleep disorders - Post-traumatic stress disorder, unspecified - Scoliosis, unspecified 05/08/2024 18:49 [facility] [place] [place] TYPE: Emergency COMPLAINT: - INSOMNIA DIAGNOSES: - Allergy status to other drugs, medicaments and biological substances - Insomnia, unspecified - Scoliosis, unspecified 01/14/2024 14:43 [facility] [place] TYPE: Emergency COMPLAINT: - POSSIBLE MENTAL HEALTH DIAGNOSES: - Allergy status to other drugs, medicaments and biological substances - Depression, unspecified - Other tank terminal gauger (current) drug therapy - Suicidal ideations 09/18/2023 13:[address] [facility] [place] TYPE: Emergency COMPLAINT: - MEDICAL CLEARANCE DIAGNOSES: - Allergy status to other drugs, medicaments and biological substances - Delusional disorders - Other tank terminal gauger (current) drug therapy - Schizoaffective disorder, unspecified INPATIENT VISIT TRACKING (12 MO.) 07/11/2024 09:29 [facility] [place] TYPE: Psychiatric Services DIAGNOSES: 0. Major depressive disorder, recurrent severe without psychotic features 0. Major depressive disorder, recurrent, unspecified 1. Major depressive disorder, recurrent severe without psychotic features 2. Erythematous condition, unspecified 2. Hypokalemia 2. Iron deficiency anemia, unspecified 2. Other specified anxiety disorders 2. Personal history of suicidal behavior 2. Pneumonitis due to inhalation of food and vomit 07/06/2024 04:37 [facility] [place] TYPE: Critical Care COMPLAINT: - INTENTONAL OVERDOSE DIAGNOSES: - Allergy status to other drugs, medicaments and biological substances - Allergy status to other drugs, medicaments and biological substances - Bipolar disorder, unspecified - Bipolar disorder, unspecified - Diarrhea, unspecified - Diarrhea, unspecified - Dystonia, unspecified - Dystonia, unspecified - Hypokalemia - Hypokalemia - Hypotension, unspecified - Hypotension, unspecified - Other tank terminal gauger (current) drug therapy - Other senior care (current) drug therapy - Pneumonia, unspecified organism - Pneumonia, unspecified organism - Poisoning by other antipsychotics and neuroleptics, intentional self-harm, initial encounter - Poisoning by selective serotonin and norepinephrine reuptake inhibitors, intentional self-harm, initial encounter - Poisoning by selective serotonin and norepinephrine reuptake inhibitors, intentional self-harm, initial encounter - Unspecified convulsions - Unspecified convulsions - Urinary tract infection, site not specified - Urinary tract infection, site not specified 01/15/2024 16:03 [facility] [place] [facility] TYPE: Behavioral Health DIAGNOSES: - Depression, unspecified 09/26/2023 11:52 [facility] [place] M.CJeanne TYPE: Behavioral Health DIAGNOSES: - Schizoaffective disorder, bipolar type - Schizoaffective disorder, unspecified - Unspecified psychosis not due to a substance or known physiological condition [email or web address]
[2024-08-19 21:00] LABS: BILIRUBIN, URINE NEGATIVE (negative); BLOOD/HGB, URINE TRACE-L (Negative); KETONE, URINE NEGATIVE (Negative); LEUK ESTERASE, URINE NEGATIVE (negative); NITRITE, URINE NEGATIVE (negative)
[2024-08-19 21:05] LABS: EPITHELIAL CELLS, URINE SQUAMOUS 3+ /lpf (0-1+)
[2024-08-19 21:06] LABS: BACTERIA, URINE RARE /hpf (negative); CASTS, URINE NONE SEEN \\lpf; COLLECTION TYPE, URINE CLEAN CATCH; CRYSTALS, URINE NONE SEEN (0-1+); REFLEX CULTURE, URINE No (No)
[2024-08-19 21:26] LABS: BASOPHILS 0.4 % (0-2); EOSINOPHILS 0.8 % (0-6); HEMATOCRIT 42.2 % (35.0-50.0); HEMOGLOBIN 14.2 g/dL (12.0-18.0); LYMPHOCYTES 21.1 % (24-44); MCH 31.1 (27-36); MCHC 33.7 g/dl (30-36); MCV 92.3 fl (81-99); MONOCYTES 7.9 % (0-12); NEUTROPHILS 69.8 % (39-80); PLATELET COUNT 244 K/uL (140-440); RBC 4.57 M/ul (4.3-5.7); RDW 13.8 (10.5-15.0)
[2024-08-19 21:28] LABS: AMPHETAMINES, URINE NEGATIVE (NEGATIVE); BARBITURATES, URINE NEGATIVE (NEGATIVE); BENZODIAZEPINE, URINE NEGATIVE (NEGATIVE); BUPRENORPHINE, URINE NEGATIVE (NEGATIVE); CANNABINOID, URINE NEGATIVE (NEGATIVE); COCAINE, URINE NEGATIVE (NEGATIVE); ECSTASY, URINE NEGATIVE (NEGATIVE); FENTANYL, URINE NEGATIVE (NEGATIVE); METHADONE, URINE NEGATIVE (NEGATIVE); OPIATES, URINE NEGATIVE (NEGATIVE); OXYCODONE, URINE NEGATIVE (NEGATIVE); PHENCYCLIDINE, URINE NEGATIVE (NEGATIVE)
[2024-08-19] MEDS ORDERED: OLANZAPINE5 MG PO (21:31)
[2024-08-19] MEDS ORDERED: PRAZOSIN HCL1 MG PO (21:31)
[2024-08-19] MEDS ORDERED: LAMOTRIGINE25 MG PO (21:31)
[2024-08-19] MEDS ORDERED: MIRTAZAPINE15 MG PO (21:31)
[2024-08-19 21:50] LABS: ACETAMINOPHEN 0 ug/mL (10-30); ALBUMIN 4.5 g/dL (3.4-5.0); ALBUMIN/GLOBULIN RATIO 1.13 (1.1-2.4); ALCOHOL, MEDICAL <3 ng/dL (<3); ALKALINE PHOSPHATASE 61 U/L (46-116); ALT (SGPT) 29 U/L (14-59); ANION GAP 16.5 (7-21); AST (SGOT) 15 U/L (15-37); BILIRUBIN, TOTAL 0.7 ng/dL (0.2-1.0); BUN/CREATININE RATIO 10.66 (6.0-28.6); CALCIUM 9.6 mg/dL (8.5-10.1); CARBON DIOXIDE 24 mmol/L (21-32); CHLORIDE 101 mmol/L (98-107); CREATININE, SERUM 0.75 mg/dL (0.55-1.02); GLOMERULAR FILTRATION RATE,EST 115 mL/min (>60); POTASSIUM 3.5 mmol/L (3.5-5.1); PROTEIN, TOTAL 8.5 g/dL (6.4-8.2); TSH, 3RD GENERATION 1.314 uIU/mL (0.358-3.740); UREA NITROGEN 8 mg/dL (7-18)
[2024-08-20] MEDS ORDERED: PRAZOSIN HCL 1 MG CAP PO ONE (00:45)
[2024-08-20] MEDS ORDERED: MIRTAZAPINE 15 MG TAB PO ONE (00:45)
[2024-08-20] MEDS ORDERED: lamoTRIgine 25 MG TAB PO ONE (00:45)
[2024-08-20] MEDS ORDERED: OLANZapine 10 MG TAB PO ONE (01:00)
[2024-08-20 08:37] LABS: CORONAVIRUS COVID-19 AG NEGATIVE (NEGATIVE); INFLUENZA A AG NEGATIVE (NEGATIVE); INFLUENZA B AG NEGATIVE (NEGATIVE)
[2024-08-20] MEDS ORDERED: lamoTRIgine 25 MG TAB PO SCH (09:00)
[2024-08-20 12:41] VITALS: BP 124/70
[2024-08-20] MEDS ORDERED: MIRTAZAPINE 15 MG TAB PO SCH (21:00)
[2024-08-20] MEDS ORDERED: PRAZOSIN HCL 1 MG CAP PO SCH (21:00)
[2024-08-20] MEDS ORDERED: OLANZapine 10 MG TAB PO SCH (21:00)
--- NOTE | 2024-08-20 21:51 | EKG ---
[facility] [address] [place], [place] [address] Signed Sinus tachycardia Possible Left atrial enlargement Cannot rule out Anterior infarct , age undetermined Abnormal ECG When compared with ECG of 08-JUL-2024 14:02, No significant change was found Confirmed by Darren Hicks DO ([id number]) on 08/20/2024 9:51:28 PM Electronically Signed By: DARREN HICKS DO [id number]/20/[id number] PATIENT NAME: STELLA HOYT CHRIS Electrocardiogram DATE OF : [birth year] PHYSICIAN: DARREN HICKS DO REPORT #: [id number] REPORT IS CONFIDENTIAL AND NOT TO BE RELEASED WITHOUT AUTHORIZATION
== END 2024-08-20 12:50 ==
LOC: ED 20:14
PROVIDERS: Internal Medicine
DX: F32.9 Major depressive disorder, single episode, unspecified (principal); M41.9 Scoliosis, unspecified; Z91.51 Personal history of suicidal behavior; Z88.8 Allergy status to other drugs, medicaments and biological substances; Z79.899 Other long term (current) drug therapy
CPT/HCPCS: 36415; 80053; 80307; 81001; 84443; 84703; 85025; 93005; 93010; 99285; A9270; G0480

== ENCOUNTER 2024-09-19 22:19 | Emergency (ER) | payer OTHER ==
[~2024-09-19] VITALS: Ht 160 cm; Wt 68.0 kg
[~2024-09-19 22:19] MED LIST changes: +LAMOTRIGINE25 MG PO; +MIRTAZAPINE15 MG PO; +OLANZAPINE5 MG PO; +PRAZOSIN HCL1 MG PO
--- OUTSIDE RECORDS SUMMARY | 2024-09-19 22:23 | XMS ---
PreManage Notification: STELLA HOYT Security Manager Basketball Events No recent Security Events currently on file CRITERIA MET - 6 ED Visits in 6 Months - [facility] - Has Care Guidelines CARE PROVIDERS [facility] Hospitalist Medical Director/Assembled Wood Products Repairer 08/27/2024-Current PHONE: [phone] [facility] Current PHONE: Unknown Shannon has no Care Guidelines for this patient. ELars VISIT COUNT (12 MO.) [address] [place] [address] TOTAL 8 NOTE: Visits indicate total known visits. ED/UCC VISIT TRACKING (12 MO.) 09/19/2024 22:20 [facility] [place] TYPE: Emergency COMPLAINT: - FALL 08/19/2024 20:14 [facility] [place] TYPE: Emergency COMPLAINT: - MENTAL HEALTH ISSUE DIAGNOSES: - Allergy status to other drugs, medicaments and biological substances - Major depressive disorder, single episode, unspecified - Other truck terminal manager (current) drug therapy - Personal history of suicidal behavior - Scoliosis, unspecified - Suicidal ideations 07/05/2024 19:26 [facility] [place] TYPE: Emergency COMPLAINT: - OD 07/04/2024 00:53 [facility] [place] TYPE: Emergency COMPLAINT: - SUICIDAL/DEPRESSION DIAGNOSES: - Allergy status to other drugs, medicaments and biological substances - Depression, unspecified - Homelessness unspecified - Insomnia, unspecified - Suicidal ideations 06/14/2024 16:27 [facility] [place] TYPE: Emergency COMPLAINT: - SLEEP PROBLEM DIAGNOSES: - Allergy status to other drugs, medicaments and biological substances - Insomnia, unspecified - Other group home (current) drug therapy - Scoliosis, unspecified - Suicidal ideations 05/10/2024 10:50 [facility] [place] TYPE: Emergency COMPLAINT: - MEDICAL CLEARANCE DIAGNOSES: - Allergy status to other drugs, medicaments and biological substances - Insomnia, unspecified - Other sleep disorders - Post-traumatic stress disorder, unspecified - Scoliosis, unspecified 05/08/2024 18:49 [facility] [place] TYPE: Emergency COMPLAINT: - INSOMNIA DIAGNOSES: - Allergy status to other drugs, medicaments and biological substances - Insomnia, unspecified - Scoliosis, unspecified 01/14/2024 14:43 [facility] [place] TYPE: Emergency COMPLAINT: - POSSIBLE MENTAL HEALTH DIAGNOSES: - Allergy status to other drugs, medicaments and biological substances - Depression, unspecified - Other truck terminal manager (current) drug therapy - Suicidal ideations INPATIENT VISIT TRACKING (12 MO.) 08/20/2024 16:25 [facility] CHENTE Cruz TYPE: Behavioral Health DIAGNOSES: - Depression, unspecified - Post-traumatic stress disorder, unspecified - Unspecified mood [affective] disorder 07/11/2024 09:29 [facility] [place] TYPE: Psychiatric Services DIAGNOSES: [...] Hypotension, unspecified - Hypotension, unspecified - Other truck terminal manager (current) drug therapy - Other truck terminal manager (current) drug therapy - Pneumonia, unspecified organism [...] tract infection, site not specified 01/15/2024 16:03 [facility] [place] TYPE: Behavioral Health DIAGNOSES: - Depression, unspecified 09/26/2023 11:52 [facility] [place] [facility] TYPE: Behavioral Health DIAGNOSES: - Schizoaffective disorder, bipolar type - Schizoaffective disorder, unspecified - Unspecified psychosis not due to a substance or known physiological condition [email or web address]
[2024-09-19 23:05] VITALS: BP 98/88
[2024-09-22] MEDS ORDERED: LAMOTRIGINE25 MG PO (13:51)
[2024-09-22] MEDS ORDERED: OLANZAPINE5 MG PO (13:52)
[2024-09-22] MEDS ORDERED: PRAZOSIN HCL1 MG PO (13:52)
== END 2024-09-19 23:05 | disposition home or self-care (01) ==
LOC: ED 22:19
DX: S00.83XA Contusion of other part of head, initial encounter (principal); F19.129 Other psychoactive substance abuse with intoxication, unspecified; T50.906A Underdosing of unspecified drugs, medicaments and biological substances, initial encounter; M41.9 Scoliosis, unspecified; Z91.148 Patient's other noncompliance with medication regimen for other reason; Z91.51 Personal history of suicidal behavior; Z88.8 Allergy status to other drugs, medicaments and biological substances; W18.30XA Fall on same level, unspecified, initial encounter
CPT/HCPCS: 70450; 99284-25

== ENCOUNTER 2024-09-22 12:38 | Emergency (ER) | payer OTHER ==
[~2024-09-22] VITALS: Ht 160 cm; Wt 66.8 kg
--- OUTSIDE RECORDS SUMMARY | 2024-09-22 12:44 | XMS ---
PreManage Notification: STELLA HOYT Security Engine Assembler Events No recent Security Events currently on file CRITERIA MET - 6 ED Visits in 6 Months - [facility] - 2 Visits in 30 Days - [facility] - Has Care Guidelines CARE PROVIDERS [facility] Electric Wirer/Crime Lab Technician 08/27/2024-Current PHONE: [phone] [facility] Current PHONE: Unknown Shannon has no Care Guidelines for this patient. ELars VISIT COUNT (12 MO.) [address] [place] [address] TOTAL 9 NOTE: Visits indicate total known visits. ED/UCC VISIT TRACKING (12 MO.) 09/22/2024 12:[address] [facility] [place] TYPE: Emergency COMPLAINT: - SUICIDAL IDEATIONS 09/19/2024 22:20 [facility] [place] TYPE: Emergency COMPLAINT: - FALL DIAGNOSES: - Allergy status to other drugs, medicaments and biological substances - Bizarre personal appearance - Contusion of other part of head, initial encounter - Fall on same level, unspecified, initial encounter - Other psychoactive substance abuse with intoxication, unspecified - Patient's other noncompliance with medication regimen for other reason - Personal history of suicidal behavior - Scoliosis, unspecified - Underdosing of unspecified drugs, medicaments and biological substances, initial encounter 08/19/2024 20:14 [facility] [place] TYPE: Emergency COMPLAINT: - MENTAL HEALTH ISSUE DIAGNOSES: - Allergy status to other drugs, medicaments and biological substances - Major depressive disorder, single episode, unspecified - Other intermediate teacher (current) drug therapy - Personal history of suicidal behavior - Scoliosis, unspecified - Suicidal ideations 07/05/2024 19:26 [facility] [place] TYPE: Emergency COMPLAINT: - OD 07/04/2024 00:53 [facility] [place] TYPE: Emergency COMPLAINT: - SUICIDAL/DEPRESSION DIAGNOSES: - Allergy status to other drugs, medicaments and biological substances - Depression, unspecified - Homelessness unspecified - Insomnia, unspecified - Suicidal ideations 06/14/2024 16:27 [facility] [place] TYPE: Emergency COMPLAINT: - SLEEP PROBLEM DIAGNOSES: - Allergy status to other drugs, medicaments and biological substances - Insomnia, unspecified - Other intermediate teacher (current) drug therapy - Scoliosis, unspecified - Suicidal ideations 05/10/2024 10:50 [facility] [place] [facility] [place] TYPE: Emergency COMPLAINT: - MEDICAL CLEARANCE DIAGNOSES: - Allergy status to other drugs, medicaments and biological substances - Insomnia, unspecified - Other sleep disorders - Post-traumatic stress disorder, unspecified - Scoliosis, unspecified 05/08/2024 18:49 [facility] [place] TYPE: Emergency COMPLAINT: - INSOMNIA DIAGNOSES: - Allergy status to other drugs, medicaments and biological substances - Insomnia, unspecified - Scoliosis, unspecified 01/14/2024 14:43 [facility] [place] TYPE: Emergency COMPLAINT: - POSSIBLE MENTAL HEALTH DIAGNOSES: - Allergy status to other drugs, medicaments and biological substances - Depression, unspecified - [facility] [place] [facility] drug therapy - Suicidal ideations INPATIENT VISIT TRACKING (12 MO.) 08/20/2024 16:[address] [facility] [facility] CHENTE Cruz TYPE: Behavioral Health DIAGNOSES: - Depression, unspecified - Post-traumatic stress disorder, unspecified - Unspecified mood [affective] disorder 07/11/2024 09:29 [facility] [place] TYPE: Psychiatric Services DIAGNOSES: 0. [...] Hypotension, unspecified - Hypotension, unspecified - Other [place] [facility] [place] drug therapy - [facility] [place] [facility] drug therapy - Pneumonia, unspecified organism [...] 01/15/2024 16:03 [facility] [place] TYPE: Behavioral Health DIAGNOSES: - Depression, unspecified 09/26/2023 11:52 [facility] [place] MJeanneCJeanne TYPE: Behavioral Health DIAGNOSES: - Schizoaffective disorder, bipolar type - Schizoaffective disorder, unspecified - Unspecified psychosis not due to a substance or known physiological condition [email or web address]
[2024-09-22 13:18] LABS: BASOPHILS 0.7 % (0-2); EOSINOPHILS 0.5 % (0-6); HEMATOCRIT 38.9 % (35.0-50.0); HEMOGLOBIN 13.2 g/dL (12.0-18.0); MCH 31.3 (27-36); MCV 91.9 fl (81-99); MONOCYTES 4.6 % (0-12); NEUTROPHILS 70.2 % (39-80); PLATELET COUNT 244 K/uL (140-440); RBC 4.23 M/ul (4.3-5.7); RDW 13.1 (10.5-15.0)
[2024-09-22 13:40] LABS: ACETAMINOPHEN 0 ug/mL (10-30); ALBUMIN/GLOBULIN RATIO 1.08 (1.1-2.4); ALCOHOL, MEDICAL <3 ng/dL (<3); ALKALINE PHOSPHATASE 62 U/L (46-116); ALT (SGPT) 24 U/L (14-59); ANION GAP 11.5 (7-21); AST (SGOT) 16 U/L (15-37); BILIRUBIN, TOTAL 0.5 mg/dL (0.2-1.0); BUN/CREATININE RATIO 15.38 (6.0-28.6); CALCIUM 9.2 mg/dL (8.5-10.1); CARBON DIOXIDE 25 mmol/L (21-32); CHLORIDE 105 mmol/L (98-107); CREATININE, SERUM 0.65 mg/dL (0.55-1.02); GLOMERULAR FILTRATION RATE,EST 128 mL/min (>60); POTASSIUM 3.5 mmol/L (3.5-5.1); PROTEIN, TOTAL 7.7 g/dL (6.4-8.2); SALICYLATE 1.1 mg/dL (2.8-20.0); TSH, 3RD GENERATION 0.349 uIU/mL (0.358-3.740); UREA NITROGEN 10 mg/dL (7-18)
[2024-09-22 13:45] LABS: AMPHETAMINES, URINE NEGATIVE (NEGATIVE); BARBITURATES, URINE NEGATIVE (NEGATIVE); BENZODIAZEPINE, URINE NEGATIVE (NEGATIVE); BUPRENORPHINE, URINE NEGATIVE (NEGATIVE); CANNABINOID, URINE NEGATIVE (NEGATIVE); COCAINE, URINE NEGATIVE (NEGATIVE); ECSTASY, URINE NEGATIVE (NEGATIVE); FENTANYL, URINE NEGATIVE (NEGATIVE); METHADONE, URINE NEGATIVE (NEGATIVE); OPIATES, URINE NEGATIVE (NEGATIVE); OXYCODONE, URINE NEGATIVE (NEGATIVE); PHENCYCLIDINE, URINE NEGATIVE (NEGATIVE)
[2024-09-22] MEDS ORDERED: MIRTAZAPINE30 MG PO (13:51)
[2024-09-22 16:10] LABS: BILIRUBIN, URINE NEGATIVE (negative); BLOOD/HGB, URINE LARGE (Negative); KETONE, URINE TRACE (Negative); LEUK ESTERASE, URINE NEGATIVE (negative); NITRITE, URINE NEGATIVE (negative)
[2024-09-22 16:16] LABS: BACTERIA, URINE NONE SEEN /hpf (negative); CASTS, URINE NONE SEEN \\lpf; COLLECTION TYPE, URINE CLEAN CATCH; CRYSTALS, URINE NONE SEEN (0-1+); EPITHELIAL CELLS, URINE NONE SEEN /lpf (0-1+); REFLEX CULTURE, URINE No (No)
[2024-09-22] MEDS ORDERED: PRAZOSIN HCL 1 MG CAP PO ONE (20:30)
[2024-09-22] MEDS ORDERED: OLANZapine 10 MG TAB PO ONE (20:30)
[2024-09-23 15:35] VITALS: BP 125/73
--- NOTE | 2024-09-23 21:11 | EKG ---
[facility] [address] [place] [address] Signed Normal sinus rhythm with sinus arrhythmia Normal ECG When compared with ECG of 20-AUG-2024 08:21, T wave inversion no longer evident in Anterior leads Confirmed by Cecil Mao MD ([id number]) on 09/23/2024 9:11:23 PM Electronically Signed By: CECIL MAO MD 09/23/242110 PATIENT NAME: EVELINASTELLA Electrocardiogram DATE OF : [birth year] PHYSICIAN: CECIL MAO MD REPORT #: [id number] REPORT IS CONFIDENTIAL AND NOT TO BE RELEASED WITHOUT AUTHORIZATION
== END 2024-09-23 15:35 ==
LOC: ED 12:38
PROVIDERS: Emergency Medicine
DX: R45.851 Suicidal ideations (principal); Z88.8 Allergy status to other drugs, medicaments and biological substances; Z79.899 Other long term (current) drug therapy
CPT/HCPCS: 36415; 80053; 80307; 81001; 84443; 84703; 85025; 93005; 93010; 99285; A9270; G0480